=== PATIENT | male | born 1965 | race Caucasian/White ===

== ENCOUNTER 2020-01-27 06:01 | Outpatient (REF) | payer OTHER, SELFPAY ==
[2020-01-27 07:34] LABS: Cholesterol 191 mg/dL; HDL Cholesterol 38 mg/dL; LDL Cholesterol Calculated 110 mg/dl; Triglycerides 217 mg/dL
== END 2020-01-27 06:02 | disposition home or self-care (01) ==
LOC: HO.LAB 06:01
PROVIDERS: Visit Provider Internal Medicine
DX: E78.5 Hyperlipidemia, unspecified (principal)
CPT/HCPCS: 80061

== ENCOUNTER 2020-04-22 06:09 | Outpatient (REF) | payer OTHER, SELFPAY ==
[2020-04-22 08:13] LABS: Cholesterol 192 mg/dL; HDL Cholesterol 42 mg/dL; LDL Cholesterol Calculated 123 mg/dl; Triglycerides 135 mg/dL
== END 2020-04-22 06:10 | disposition home or self-care (01) ==
LOC: HO.LAB 06:09
PROVIDERS: PCP Internal Medicine; Visit Provider Internal Medicine
DX: E11.9 Type 2 diabetes mellitus without complications (principal)
CPT/HCPCS: 36415; 80061

== ENCOUNTER 2020-08-20 06:05 | Outpatient (REF) | payer OTHER, SELFPAY ==
[2020-08-20 07:29] LABS: Cholesterol 167 mg/dL; HDL Cholesterol 41 mg/dL; LDL Cholesterol Calculated 100 mg/dl; Triglycerides 132 mg/dL
== END 2020-08-20 06:06 | disposition home or self-care (01) ==
LOC: HO.LAB 06:05
PROVIDERS: PCP Internal Medicine; Visit Provider Internal Medicine
DX: E11.9 Type 2 diabetes mellitus without complications (principal)
CPT/HCPCS: 36415; 80061

== ENCOUNTER 2020-12-07 09:25 | Outpatient (REF) | payer OTHER, SELFPAY | END 2020-12-07 09:26 | disposition home or self-care (01) | LOC: HO.LAB 09:25 | PROVIDERS: Visit Provider Hospitalist | DX: J02.8 Acute pharyngitis due to other specified organisms (principal); B97.89 Other viral agents as the cause of diseases classified elsewhere; R51.9 Headache, unspecified; Z20.822 Contact with and (suspected) exposure to COVID-19 | CPT/HCPCS: U0003; U0005 ==

== ENCOUNTER 2021-02-11 08:03 | Outpatient (REF) | payer OTHER, SELFPAY ==
[2021-02-11 08:22] LABS: MANUAL DIFF FLAG NO
[2021-02-11 08:40] LABS: Basophils Percent Auto 0.3 % (0-2); Eosinophils Absolute Auto 0.1 X10*3/uL (0.0-0.4); Hematocrit 44.1 % (42.0-52.0); Hemoglobin 15.4 g/dl (14.0-18.0); Imm Gran Abs Auto 0.02 X10*3/uL (0.00-0.03); Imm Gran Pct Auto 0.3 % (0.0-0.4); Lymphocytes Absolute Auto 2.3 X10*3/uL (1.2-4.9); Lymphocytes Percent Auto 38.1 % (20-40); Mean Corpuscular HGB Conc 34.9 g/dl (31.0-36.0); Mean Corpuscular Hemoglobin 32.8 pg (27.0-33.0); Mean Platelet Volume 8.5 fL (9.4-12.4); Monocytes Absolute Auto 0.5 X10*3/uL (0.1-1.2); Neutrophils Percent Auto 51.3 % (45-73); Platelet Count 206 X10*3/uL (160-400); Red Blood Count 4.69 X10*6/uL (4.60-5.80); Red Cell Distribution Width 11.4 % (11.0-16.0); White Blood Count 5.9 X10*3/uL (4.8-10.8)
[2021-02-11 09:18] LABS: Alanine Aminotransferase 19 U/L (0-40); Albumin Level 4.2 g/dL (3.5-5.0); Alkaline Phosphatase 91 U/L (39-117); Anion Gap 13 (12-20); Aspartate Amino Transferase 18 U/L (5-37); Bilirubin Total 0.8 mg/dL (0.0-1.0); Blood Urea Nitrogen 19 mg/dL (9-16); Calcium 9.1 mg/dL (8.4-10.2); Carbon Dioxide 24 mmol/L (22-29); Chloride 105 mmol/L (96-108); Cholesterol 181 mg/dL; Estimated Glomerular Filt Rate > 60; Glucose Fasting 104 mg/dL (60-99); HDL Cholesterol 39 mg/dL; LDL Cholesterol Calculated 106 mg/dl; Potassium 4.1 mmol/L (3.3-5.1); Sodium 138 mmol/L (135-145); Total Protein 6.7 g/dL (6.5-8.0); Triglycerides 182 mg/dL
== END 2021-02-11 08:04 | disposition home or self-care (01) ==
LOC: HO.LAB 08:03
PROVIDERS: PCP Internal Medicine; Visit Provider Internal Medicine
DX: Z00.00 Encounter for general adult medical examination without abnormal findings (principal); E11.9 Type 2 diabetes mellitus without complications
CPT/HCPCS: 36415; 80053; 80061; 85025

== ENCOUNTER 2021-03-02 11:21 | Outpatient (REF) | payer OTHER, SELFPAY ==
[2021-03-02 15:06] LABS: Influenza A PCR NEGATIVE (Negative); Influenza B PCR NEGATIVE (Negative); Resp Syncy Virus RNA Qual PCR NEGATIVE (Negative); SARS COV2 PCR INHOUSE POSITIVE (Negative)
== END 2021-03-02 11:22 | disposition home or self-care (01) ==
LOC: HO.LAB 11:21
PROVIDERS: Visit Provider Family Medicine
DX: Z20.822 Contact with and (suspected) exposure to COVID-19 (principal); B34.9 Viral infection, unspecified
CPT/HCPCS: 0241U

== ENCOUNTER 2021-05-20 06:02 | Outpatient (REF) | payer OTHER, SELFPAY ==
[2021-05-20 08:02] LABS: Cholesterol 206 mg/dL; HDL Cholesterol 44 mg/dL; LDL Cholesterol Calculated 124 mg/dl; Triglycerides 193 mg/dL
== END 2021-05-20 06:03 | disposition home or self-care (01) ==
LOC: HO.LAB 06:02
PROVIDERS: PCP Internal Medicine; Visit Provider Internal Medicine
DX: Z00.00 Encounter for general adult medical examination without abnormal findings (principal)
CPT/HCPCS: 36415; 80061

== ENCOUNTER 2021-09-16 07:32 | Outpatient (REF) | payer OTHER, SELFPAY ==
[2021-09-16 08:23] LABS: Cholesterol 196 mg/dL; HDL Cholesterol 41 mg/dL; LDL Cholesterol Calculated 127 mg/dl; Triglycerides 141 mg/dL
== END 2021-09-16 07:33 | disposition home or self-care (01) ==
LOC: HO.LAB 07:32
PROVIDERS: PCP Internal Medicine; Visit Provider Internal Medicine
DX: Z00.00 Encounter for general adult medical examination without abnormal findings (principal)
CPT/HCPCS: 36415; 80061

== ENCOUNTER 2022-01-18 08:14 | Outpatient (REF) | payer OTHER, SELFPAY ==
[2022-01-18 08:26] LABS: MANUAL DIFF FLAG NO
[2022-01-18 08:39] LABS: Basophils Absolute Auto 0.1 X10*3/uL (0.0-0.2); Basophils Percent Auto 0.7 % (0-2); Eosinophils Absolute Auto 0.2 X10*3/uL (0.0-0.4); Hematocrit 46.1 % (42.0-52.0); Hemoglobin 15.8 g/dl (14.0-18.0); Imm Gran Abs Auto 0.06 X10*3/uL (0.00-0.03); Imm Gran Pct Auto 0.8 % (0.0-0.4); Lymphocytes Absolute Auto 2.6 X10*3/uL (1.2-4.9); Lymphocytes Percent Auto 34.3 % (20-40); Mean Corpuscular HGB Conc 34.3 g/dl (31.0-36.0); Mean Corpuscular Hemoglobin 32.6 pg (27.0-33.0); Mean Corpuscular Volume 95.1 fL (80.0-98.0); Mean Platelet Volume 8.4 fL (9.4-12.4); Monocytes Absolute Auto 0.7 X10*3/uL (0.1-1.2); Monocytes Percent Auto 8.5 % (2-11); Neutrophils Absolute Auto 4.1 x10*3/uL (2.0-8.3); Neutrophils Percent Auto 53.7 % (45-73); Platelet Count 243 X10*3/uL (160-400); Red Blood Count 4.85 X10*6/uL (4.60-5.80); Red Cell Distribution Width 11.2 % (11.0-16.0); White Blood Count 7.6 X10*3/uL (4.8-10.8)
[2022-01-18 10:00] LABS: Alanine Aminotransferase 24 U/L (0-40); Albumin Level 4.2 g/dL (3.5-5.0); Alkaline Phosphatase 96 U/L (39-117); Anion Gap 12 (12-20); Aspartate Amino Transferase 19 U/L (5-37); Bilirubin Total 0.5 mg/dL (0.0-1.0); Blood Urea Nitrogen 15 mg/dL (9-16); Carbon Dioxide 28 mmol/L (22-29); Chloride 103 mmol/L (96-108); Cholesterol 178 mg/dL; Estimated Glomerular Filt Rate > 60; Glucose Fasting 102 mg/dL (60-99); HDL Cholesterol 39 mg/dL; LDL Cholesterol Calculated 94 mg/dl; Potassium 4.4 mmol/L (3.3-5.1); Sodium 139 mmol/L (135-145); Thyroid Stimulating Hormone 0.71 uIU/mL (0.32-4.0); Total Protein 6.6 g/dL (6.5-8.0); Triglycerides 226 mg/dL
== END 2022-01-18 08:15 | disposition home or self-care (01) ==
LOC: HO.LAB 08:14
PROVIDERS: PCP Internal Medicine; Visit Provider Internal Medicine
DX: Z13.0 Encounter for screening for diseases of the blood and blood-forming organs and certain disorders involving the immune mechanism (principal); I10 Essential (primary) hypertension; E78.5 Hyperlipidemia, unspecified; E03.9 Hypothyroidism, unspecified
CPT/HCPCS: 36415; 80053; 80061; 84443; 85025

== ENCOUNTER 2022-05-20 08:03 | Outpatient (REF) | payer OTHER, SELFPAY ==
[2022-05-20 08:55] LABS: Cholesterol 188 mg/dL; HDL Cholesterol 41 mg/dL; LDL Cholesterol Calculated 111 mg/dl; Triglycerides 183 mg/dL
== END 2022-05-20 08:04 | disposition home or self-care (01) ==
LOC: HO.LAB 08:03
PROVIDERS: PCP Internal Medicine; Visit Provider Internal Medicine
DX: E78.5 Hyperlipidemia, unspecified (principal)
CPT/HCPCS: 36415; 80061

== ENCOUNTER 2022-08-21 06:07 | Outpatient (REF) | payer OTHER, SELFPAY ==
[2022-08-21 08:00] LABS: Cholesterol 162 mg/dL; HDL Cholesterol 41 mg/dL; LDL Cholesterol Calculated 80 mg/dl; Triglycerides 206 mg/dL
== END 2022-08-21 06:08 | disposition home or self-care (01) ==
LOC: HO.LAB 06:07
PROVIDERS: PCP Internal Medicine; Visit Provider Internal Medicine
DX: E78.5 Hyperlipidemia, unspecified (principal)
CPT/HCPCS: 36415; 80061

== ENCOUNTER 2022-12-22 06:05 | Outpatient (REF) | payer OTHER, SELFPAY ==
[2022-12-22 07:49] LABS: Cholesterol 184 mg/dL (<200); HDL Cholesterol 46 mg/dL (>40); LDL Cholesterol Calculated 109 mg/dL (<100); Triglycerides 146 mg/dL (<150)
== END 2022-12-22 06:06 | disposition home or self-care (01) ==
LOC: HO.LAB 06:05
PROVIDERS: PCP Internal Medicine; Visit Provider Internal Medicine
DX: E78.5 Hyperlipidemia, unspecified (principal)
CPT/HCPCS: 36415; 80061

== ENCOUNTER 2022-12-25 14:07 | Outpatient (AMB) | payer OTHER, SELFPAY ==
[2022-12-25 14:10] VITALS: BP 136/78; PULSE 95; O2SAT 98; BMI 33.9
--- NOTE | 2022-12-25 14:10 | MHC.PC.OV ---
Vital Signs 12/25/22 14:10 Height 5 ft 11 in Weight 243 lb BMI 33.9 BP 136/78 Blood Pressure Location Lt brachial Position Sitting Pulse 95 Pulse Source Pulse Oximeter Pulse Oximetry (%) 98 Oxygen Delivery Method Room Air Intake Visit Reasons: 4mth f/u Allergies amoxicillin [AMOXICILLIN] Allergy (Intermediate, Verified 12/25/22 14:10) HIVES/DIARRHEA Medication List - Last Reconciled 12/26/22 by Slade Chaves MD lovastatin 40 mg PO DAILY Tobacco use date assessed: 08/24/22 Dental Screening Dental Screen Date: 12/25/22 Did you have a dental visit in the last 12 months?: Yes Did you have a dental problem in the last 6 months where you did not have access to dental care?: No Was dental information given to patient?: Patient has dentist HPI 4mth f/u HPI Details hyperlip on rx; compliant COUNTS INCLUDE 234 BEDS AT THE [facility] Medical History Obesity Hyperlipidemia Surgical History No pertinent past surgical history Family History Father Lung cancer Mother CAD (coronary artery disease) Liver cancer Myocardial infarction Brother No problems noted. Social History Housing: House Alcohol intake: current Alcohol intake frequency: a few times a month Patient Tobacco Use Status: Never used Tobacco e-Cigarette/Vaping Use: Never Used Second Hand Smoke Exposure: No service: No Current occupational status: employed Cognitive needs: No Hearing needs: No Vision needs: Yes Questionnaire PHQ-9 Over the last 2 weeks, how often have you been bothered by any of the following problems? 1. Little interest or pleasure in doing things: not at all 2. Feeling down, depressed, or hopeless: not at all 3. Trouble falling or staying asleep, or sleeping too much: not at all 4. Feeling tired or having little energy: not at all 5. Poor appetite or overeating: not at all 6. Feeling bad about yourself - or that you are a failure or have let yourself or your family down: not at all 7. Trouble concentrating on things, such as reading the newspaper or watching television: not at all 8. Moving or speaking so slowly that other people could have noticed. Or the opposite - being so fidgety or restless that you have been moving around a lot more than usual: not at all 9. Thoughts that you would be better off or of hurting yourself in some way: not at all Total score: 0 Depression Screening Interpretation: Negative Depression Screening Done: Yes 30428 - PHQ-9 Billing: Yes Source: Developed by Drs. Elvin Perdomo, Maribel Beverly, Roberth Galvin and colleagues, with an educational parisa from [employer]. Thrive Questionnaire Date Thrive assessed: 08/24/22 AUDIT C Alcohol Use Questionnaire (AUDIT-C) Score Reviewed/Action Taken: Yes RONAL-7 AMB Questionnaire RONAL-7 Date RONAL - 7 assessed: 08/24/22 Source: Developed by Drs. Elvin Perdomo, Maribel Beverly, Roberth Galvin and colleagues, with an educational parisa from [employer]. Review of Systems Const Denies chills, Denies headache(s) and Denies weight loss ENT Denies headache(s) Card Denies chest pain, Denies syncope, Denies irregular heart rhythm and Denies dyspnea Resp Denies chest congestion, Denies cough and Denies dyspnea GI Denies abdominal pain, Denies change in stool character, Denies nausea and Denies vomiting Musc Denies deformity and Denies joint swelling Neuro Denies syncope and Denies headache(s) Physical exam (Primary Care) Vital Signs: Last Vital Signs Pulse 95 12/25/22 14:10 BP 136/78 12/25/22 14:10 Pulse Ox 98 12/25/22 14:10 Oxygen Delivery Method Room Air 12/25/22 14:10 BMI result Body Mass Index 33.9 Tobacco/Smoking Status: Tobacco use Status Tobacco use date assessed 08/24/22 12/25/22 14:11 Patient Tobacco Use Status Never used Tobacco 12/25/22 14:11 e-Cigarette/Vaping Use Never Used 12/25/22 14:11 PHQ-9: PHQ-9 Score PHQ-9: Total score 0 12/25/22 14:11 Depression Screening Interpretation: Negative Thrive Assessment: Date of Thrive Assessment Date Thrive assessed 08/24/22 12/25/22 14:11 Const General: cooperative, comfortable, no acute distress and alert Neck Neck: Yes no lymphadenopathy Thyroid: Thyroid normal Resp Effort & Inspection: normal respiratory effort Auscultation: clear to auscultation bilaterally Percussion: percussion normal Cardio Jugular venous distension: no JVD Palpation: normal PMI Rate: regular rate Rhythm: regular rhythm Heart sounds: S1 normal heart sound present and S2 normal heart sound present GI Inspection: Yes normal to inspection Palpation (GI): No hepatosplenomegaly present Skin General skin exam: no rashes or lesions noted Extrem General: Yes no clubbing, cyanosis or edema Assessment and Plan Assessment & Plan (1) Hyperlipidemia: Code(s): E78.5 - Hyperlipidemia, unspecified Plan: stable; same rx Orders: Orders Lipid Panel Today E78.5 - Hyperlipidemia, unspecified Coding Level of Care Code Est Pt Level 3 (91076) Diagnoses Hyperlipidemia E78.5
== END 2022-12-25 14:27 | disposition home or self-care (01) ==
PROVIDERS: PCP Internal Medicine; Visit Provider Internal Medicine
DX: E78.5 Hyperlipidemia, unspecified (principal)
CPT/HCPCS: 99213

== ENCOUNTER 2023-02-09 06:07 | Outpatient (REF) | payer OTHER, SELFPAY ==
[2023-02-09 07:29] LABS: Cholesterol 195 mg/dL (<200); HDL Cholesterol 41 mg/dL (>40); LDL Cholesterol Calculated 117 mg/dL (<100); Triglycerides 186 mg/dL (<150)
== END 2023-02-09 06:08 | disposition home or self-care (01) ==
LOC: HO.LAB 06:07
PROVIDERS: PCP Internal Medicine; Visit Provider Internal Medicine
DX: E78.5 Hyperlipidemia, unspecified (principal)
CPT/HCPCS: 36415; 80061

== ENCOUNTER 2023-02-12 08:37 | Outpatient (AMB) | payer OTHER, SELFPAY ==
[2023-02-12 08:38] VITALS: BP 150/80; PULSE 100; O2SAT 98; BMI 33.9
--- NOTE | 2023-02-12 08:38 | A.OFFPC_ITS ---
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 Accompanied by: Self / Same As Patient Allergies amoxicillin [AMOXICILLIN] Allergy (Intermediate, Verified 02/12/23 08:38) HIVES/DIARRHEA Medication List - Last Reconciled 02/12/23 by Slade Chaves MD lovastatin 40 mg PO DAILY Tobacco use date assessed: 08/24/22 Dental Screening Dental Screen Date: 02/12/23 Did you have a dental visit in the last 12 months?: Yes Did you have a dental problem in the last 6 months where you did not have access to dental care?: No Was dental information given to patient?: Patient has dentist HPI Annual Exam HPI Details hyper[facility] Medical History Obesity Hyperlipidemia Surgical History No pertinent past surgical history Family History Father Lung cancer Mother CAD (coronary artery disease) Liver cancer Myocardial infarction Brother No problems noted. Social History Housing: House Alcohol intake: current Alcohol intake frequency: a few times a month Patient Tobacco Use Status: Never used Tobacco e-Cigarette/Vaping Use: Never Used Second Hand Smoke Exposure: No service: No Current occupational status: employed Cognitive needs: No Hearing needs: No Vision needs: Yes Questionnaire Thrive Questionnaire Date Thrive assessed: 08/24/22 RNOAL-7 AMB Questionnaire RONAL-7 Date RONAL - 7 assessed: 08/24/22 Source: Developed by Drs. Elvin Perdomo, Maribel Beverly, Roberth Galvin and colleagues, with an educational parisa from [employer]. Review of Systems Const Denies chills, Denies fatigue, Denies headache(s) and Denies weight loss Eyes Denies change in vision, Denies diplopia and Denies eye pain ENT Denies vertigo, Denies dizziness, Denies headache(s) and Denies nasal discharge Card Denies chest pain, Denies rapid heart rate and Denies dyspnea on exertion Resp Denies chest congestion, Denies cough, Denies pain with cough and Denies dyspnea on exertion GI Denies abdominal pain, Denies hematochezia and Denies change in bowel habits Musc Denies myalgias, Denies arthralgias and Denies joint swelling Skin/Breast Denies lesions and Denies unusual bruising Neuro Denies vertigo, Denies dizziness, Denies headache(s) and Denies focal weakness Endo Denies fatigue Physical exam (Primary Care) Vital Signs: Last Vital Signs Pulse 100 02/12/23 08:38 BP 150/80 H 02/12/23 08:38 Pulse Ox 98 02/12/23 08:38 Oxygen Delivery Method Room Air 02/12/23 08:38 BMI result Body Mass Index 33.9 Tobacco/Smoking Status: Tobacco use Status Tobacco use date assessed 08/24/22 02/12/23 08:38 Patient Tobacco Use Status Never used Tobacco 02/12/23 08:38 e-Cigarette/Vaping Use Never Used 02/12/23 08:38 Thrive Assessment: Date of Thrive Assessment Date Thrive assessed 08/24/22 02/12/23 08:38 Const General: cooperative, healthy appearing and no acute distress Orientation/consciousness: oriented to person, oriented to place and oriented to time [facility] Head: Yes normal to inspection, Yes normocephalic and Yes atraumatic Mouth: Normal oral and palatal mucosa present and tongue normal Throat: Yes posterior oropharynx normal and Yes uvula midline Eyes General: appearance normal, both eyes and all related structures Neck Neck: Yes normal visual inspection, Yes full ROM and Yes no lymphadenopathy Thyroid: Thyroid normal Carotids: normal carotid upstroke Chest Chest palpation & inspection: normal inspection of the chest Resp Effort & Inspection: normal respiratory effort and able to speak in complete sentences Auscultation: clear to auscultation bilaterally Cardio Jugular venous distension: no JVD Palpation: normal PMI Rate: regular rate Rhythm: regular rhythm Heart sounds: S1 normal heart sound present and S2 normal heart sound present GI Inspection: Yes normal to inspection Palpation (GI): Soft to palpation and No hepatosplenomegaly present Auscultation: normal bowel sounds General: Yes no CVA tenderness Back/Spine/Pelvis Back: no CVA tenderness Skin General skin exam: no rashes or lesions noted Neuro General: oriented to person, oriented to place and oriented to time Extrem General: Yes normal to inspection and Yes full ROM Assessment and Plan Assessment & Plan (1) Physical exam: Code(s): Z00.00 - Encounter for general adult medical examination without abnormal findings Plan: stable (2) Hyperlipidemia: Code(s): E78.5 - Hyperlipidemia, unspecified Plan: stable; same rx Orders: Orders Lipid Panel Today E78.5 - Hyperlipidemia, unspecified Complete Blood Count Auto Diff Today D64.9 - Anemia, unspecified Comprehensive [place]. Panel Fast Today N28.9 - Disorder of kidney and ureter, unspecified Coding Level of Care Code Est Pt Prev Care 40-64y(24368) Diagnoses Physical exam Z00.00 Hyperlipidemia E78.5
== END 2023-02-12 09:23 | disposition home or self-care (01) ==
PROVIDERS: Visit Provider Internal Medicine
DX: Z00.00 Encounter for general adult medical examination without abnormal findings (principal); E78.5 Hyperlipidemia, unspecified
CPT/HCPCS: 99396

== ENCOUNTER 2023-05-10 08:43 | Outpatient (REF) | payer OTHER, SELFPAY ==
[2023-05-10 09:11] LABS: MANUAL DIFF FLAG NO
[2023-05-10 09:31] LABS: Basophils Percent Auto 0.4 % (0-2); Eosinophils Absolute Auto 0.1 X10*3/uL (0.0-0.4); Eosinophils Percent Auto 1.8 % (0-4); Hematocrit 45.4 % (42.0-52.0); Hemoglobin 16.1 g/dl (14.0-18.0); Imm Gran Abs Auto 0.04 X10*3/uL (0.00-0.03); Imm Gran Pct Auto 0.6 % (0.0-0.4); Lymphocytes Absolute Auto 2.6 X10*3/uL (1.2-4.9); Lymphocytes Percent Auto 37.5 % (20-40); Mean Corpuscular HGB Conc 35.5 g/dl (31.0-36.0); Mean Corpuscular Hemoglobin 32.9 pg (27.0-33.0); Mean Corpuscular Volume 92.7 fL (80.0-98.0); Mean Platelet Volume 8.3 fL (9.4-12.4); Monocytes Absolute Auto 0.6 X10*3/uL (0.1-1.2); Monocytes Percent Auto 8.8 % (2-11); Neutrophils Absolute Auto 3.5 x10*3/uL (2.0-8.3); Neutrophils Percent Auto 50.9 % (45-73); Platelet Count 201 X10*3/uL (160-400); Red Cell Distribution Width 11.5 % (11.0-16.0); White Blood Count 6.9 X10*3/uL (4.8-10.8)
[2023-05-10 10:06] LABS: Alanine Aminotransferase 26 U/L (0-40); Albumin Level 4.2 g/dL (3.5-5.0); Alkaline Phosphatase 99 U/L (39-117); Anion Gap 11 (12-20); Aspartate Amino Transferase 21 U/L (5-37); Bilirubin Total 0.7 mg/dL (0.0-1.0); Blood Urea Nitrogen 18 mg/dL (9-16); Calcium 9.1 mg/dL (8.4-10.2); Carbon Dioxide 25 mmol/L (22-29); Chloride 107 mmol/L (96-108); Cholesterol 177 mg/dL (<200); Estimated Glomerular Filt Rate > 60; Glucose Fasting 103 mg/dL (60-99); HDL Cholesterol 45 mg/dL (>40); LDL Cholesterol Calculated 108 mg/dL (<100); Potassium 4.3 mmol/L (3.3-5.1); Sodium 139 mmol/L (135-145); Total Protein 6.9 g/dL (6.5-8.0); Triglycerides 123 mg/dL (<150)
== END 2023-05-10 08:44 | disposition home or self-care (01) ==
LOC: HO.LAB 08:43
PROVIDERS: PCP Internal Medicine; Visit Provider Internal Medicine
DX: N28.9 Disorder of kidney and ureter, unspecified (principal); D64.9 Anemia, unspecified; E78.5 Hyperlipidemia, unspecified
CPT/HCPCS: 36415; 80053; 80061; 85025

== ENCOUNTER 2023-05-15 10:13 | Outpatient (AMB) | payer OTHER, SELFPAY ==
[2023-05-15 10:17] VITALS: BP 140/76; PULSE 75; O2SAT 98; BMI 34.3
--- NOTE | 2023-05-15 10:17 | MHC.PC.OV ---
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 Accompanied by: Self / Same As Patient Allergies amoxicillin [AMOXICILLIN] Allergy (Intermediate, Verified 05/15/23 10:18) HIVES/DIARRHEA Medication List - Last Reconciled 05/15/23 by Slade Chaves MD lovastatin 40 mg PO DAILY Tobacco use date assessed: 05/15/23 Dental Screening Dental Screen Date: 05/15/23 Did you have a dental visit in the last 12 months?: Yes Did you have a dental problem in the last 6 months where you did not have access to dental care?: No Was dental information given to patient?: Patient has dentist HPI 3 month f/u HPI Details hyperlipidemia on rx; doing well; compliant [facility] Medical History Obesity Hyperlipidemia Surgical History No pertinent past surgical history Family History Father Lung cancer Mother CAD (coronary artery disease) Liver cancer Myocardial infarction Brother No problems noted. Social History Housing: House Alcohol intake: current Alcohol intake frequency: a few times a month Patient Tobacco Use Status: Never used Tobacco e-Cigarette/Vaping Use: Never Used Second Hand Smoke Exposure: No service: No Current occupational status: employed Cognitive needs: No Hearing needs: No Vision needs: Yes Questionnaire PHQ-9 Over the last 2 weeks, how often have you been bothered by any of the following problems? 1. Little interest or pleasure in doing things: not at all 2. Feeling down, depressed, or hopeless: not at all 3. Trouble falling or staying asleep, or sleeping too much: not at all 4. Feeling tired or having little energy: not at all 5. Poor appetite or overeating: not at all 6. Feeling bad about yourself - or that you are a failure or have let yourself or your family down: not at all 7. Trouble concentrating on things, such as reading the newspaper or watching television: not at all 8. Moving or speaking so slowly that other people could have noticed. Or the opposite - being so fidgety or restless that you have been moving around a lot more than usual: not at all 9. Thoughts that you would be better off or of hurting yourself in some way: not at all Total score: 0 Depression Screening Interpretation: Negative Depression Screening Done: Yes 18814 - PHQ-9 Billing: Yes Source: Developed by Drs. Elvin Perdomo, Maribel Beverly, Roberth Galvin and colleagues, with an educational parisa from [employer]. Thrive Questionnaire Date Thrive assessed: 05/15/23 I am a: Patient What is your living situation today?: I have a steady place to live Within the past 12 months, did the food you bought not last and you didn't have the money to get more?: Never true Within the past 12 months, did you worry whether your food would run out before you got money to buy more?: Never true Do you have trouble paying for medicines?: No Do you have trouble getting transportation to medical appointments?: No Do you have trouble paying your heating and electricity bill?: No Do you have trouble taking care of your child, family member or friend?: No Do you have trouble with day-to-day activities such as bathing, preparing meals, shopping, managing finances, etc.?: No Are you currently unemployed and looking for a job?: No Are you interested in more education?: No Please select the resources that you would like help with: None THRIVE Score: 0 AUDIT C Alcohol Use Questionnaire (AUDIT-C) 1. How often do you have a drink containing alcohol?: Never Total Score: 0 Score Reviewed/Action Taken: Yes RONAL-7 AMB Questionnaire RONAL-7 Date RONAL - 7 assessed: 05/15/23 Feeling nervous, anxious, or on edge: 0 = Not at all Not being able to stop or control worryin = Not at all Worrying too much about different things: 0 = Not at all Trouble relaxin = Not at all Being so restless that it is hard to sit still: 0 = Not at all Becoming easily annoyed or irritable: 0 = Not at all Feeling afraid as if something awful might happen: 0 = Not at all Total RONAL-7 score (0-4 normal; 5-9 mild; 10-14 moderate; 15-21 severe): 0 Source: Developed by Drs. Elvin Perdomo, Maribel Beverly, Roberth Galvin and colleagues, with an educational parisa from [employer]. RONAL-7 Assessment Billing RONAL-7 Assessment Tool: RONAL-7 Assessment 08241 Review of Systems Const Denies chills, Denies headache(s) and Denies weight loss ENT Denies headache(s) Card Denies chest pain, Denies syncope, Denies irregular heart rhythm and Denies dyspnea Resp Denies chest congestion, Denies cough and Denies dyspnea GI Denies abdominal pain, Denies change in stool character, Denies nausea and Denies vomiting Musc Denies deformity and Denies joint swelling Neuro Denies syncope and Denies headache(s) Physical exam (Primary Care) Vital Signs: Last Vital Signs Pulse 75 05/15/23 10:17 BP 140/76 H 05/15/23 10:17 Pulse Ox 98 05/15/23 10:17 Oxygen Delivery Method Room Air 05/15/23 10:17 BMI result Body Mass Index 34.3 Tobacco/Smoking Status: Tobacco use Status Tobacco use date assessed 05/15/23 05/15/23 10:22 Patient Tobacco Use Status Never used Tobacco 05/15/23 10:22 e-Cigarette/Vaping Use Never Used 05/15/23 10:22 PHQ-9: PHQ-9 Score PHQ-9: Total score 0 05/15/23 10:22 Depression Screening Interpretation: Negative Thrive Assessment: Date of Thrive Assessment Date Thrive assessed 05/15/23 05/15/23 10:22 Const General: cooperative, comfortable, no acute distress and alert Neck Neck: Yes no lymphadenopathy Thyroid: Thyroid normal Resp Effort & Inspection: normal respiratory effort Auscultation: clear to auscultation bilaterally Percussion: percussion normal Cardio Jugular venous distension: no JVD Palpation: normal PMI Rate: regular rate Rhythm: regular rhythm Heart sounds: S1 normal heart sound present and S2 normal heart sound present GI Inspection: Yes normal to inspection Palpation (GI): No hepatosplenomegaly present Skin General skin exam: no rashes or lesions noted Extrem General: Yes no clubbing, cyanosis or edema Assessment and Plan Assessment & Plan (1) Hyperlipidemia: Code(s): E78.5 - Hyperlipidemia, unspecified Plan: stable; same rx Orders: Orders Lipid Panel Today E78.5 - Hyperlipidemia, unspecified Coding Level of Care Code Est Pt Level 3 (53412) Diagnoses Hyperlipidemia E78.5 Additional Codes RONAL-7 Assessment Billing - RONAL-7 Assessment Tool: RONAL-7 Assessment [id number] ([id number])
== END 2023-05-15 10:38 | disposition home or self-care (01) ==
PROVIDERS: PCP Internal Medicine; Visit Provider Internal Medicine
DX: E78.5 Hyperlipidemia, unspecified (principal)
CPT/HCPCS: 99213

== ENCOUNTER 2023-08-29 06:05 | Outpatient (REF) | payer OTHER, SELFPAY ==
[2023-08-29 08:00] LABS: Cholesterol 178 mg/dL (<200); HDL Cholesterol 43 mg/dL (>40); LDL Cholesterol Calculated 100 mg/dL (<100); Triglycerides 176 mg/dL (<150)
== END 2023-08-29 06:06 | disposition home or self-care (01) ==
LOC: HO.LAB 06:05
PROVIDERS: PCP Internal Medicine; Visit Provider Internal Medicine
DX: E78.5 Hyperlipidemia, unspecified (principal)
CPT/HCPCS: 36415; 80061

== ENCOUNTER 2023-09-04 10:44 | Outpatient (AMB) | payer OTHER, SELFPAY ==
--- NOTE | 2023-09-04 10:44 | MHC.PC.OV ---
Vital Signs 09/04/23 10:45 Height 5 ft 11 in Weight 245 lb BMI 34.2 BP 160/90 H Blood Pressure Location Lt brachial Position Sitting Pulse 70 Pulse Source Pulse Oximeter Pulse Oximetry (%) 98 Oxygen Delivery Method Room Air Intake Visit Reasons: 4mth f/u Rehabilitation Attendant: Not Required per policy Accompanied by: Self / Same As Patient Allergies amoxicillin [AMOXICILLIN] Allergy (Intermediate, Verified 09/04/23 10:45) HIVES/DIARRHEA Medication List - Last Reconciled 09/04/23 by Slade Chaves MD lovastatin 40 mg PO DAILY Tobacco use date assessed: 05/15/23 Dental Screening Dental Screen Date: 05/15/23 HPI 4mth f/u HPI Details hyperlipidemia on rx; compliant with rx PFSH Medical History Obesity Hyperlipidemia Surgical History No pertinent past surgical history Family History Father Lung cancer Mother CAD (coronary artery disease) Liver cancer Myocardial infarction Brother No problems noted. Social History Housing: House Alcohol intake: current Alcohol intake frequency: a few times a month Patient Tobacco Use Status: Never used Tobacco e-Cigarette/Vaping Use: Never Used Second Hand Smoke Exposure: No service: No Current occupational status: employed Cognitive needs: No Hearing needs: No Vision needs: Yes Questionnaire Thrive Questionnaire Date Thrive assessed: 05/15/23 RONAL-7 AMB Questionnaire RONAL-7 Date RONAL - 7 assessed: 05/15/23 Source: Developed by Drs. Elvin Perdomo, Maribel Beverly, Roberth Galvin and colleagues, with an educational parisa from [employer]. Review of Systems Const Denies chills, Denies headache(s) and Denies weight loss ENT Denies headache(s) Card Denies chest pain, Denies syncope, Denies irregular heart rhythm and Denies dyspnea Resp Denies chest congestion, Denies cough and Denies dyspnea GI Denies abdominal pain, Denies change in stool character, Denies nausea and Denies vomiting Musc Denies deformity and Denies joint swelling Neuro Denies syncope and Denies headache(s) Physical exam (Primary Care) Vital Signs: Last Vital Signs Pulse 70 09/04/23 10:45 BP 160/90 H 09/04/23 10:45 Pulse Ox 98 09/04/23 10:45 Oxygen Delivery Method Room Air 09/04/23 10:45 BMI result Body Mass Index 34.2 Tobacco/Smoking Status: Tobacco use Status Tobacco use date assessed 05/15/23 09/04/23 10:47 Patient Tobacco Use Status Never used Tobacco 09/04/23 10:47 e-Cigarette/Vaping Use Never Used 09/04/23 10:47 Thrive Assessment: Date of Thrive Assessment Date Thrive assessed 05/15/23 09/04/23 10:47 Const General: cooperative, comfortable, no acute distress and alert Neck Neck: Yes no lymphadenopathy Thyroid: Thyroid normal Resp Effort & Inspection: normal respiratory effort Auscultation: clear to auscultation bilaterally Percussion: percussion normal Cardio Jugular venous distension: no JVD Palpation: normal PMI Rate: regular rate Rhythm: regular rhythm Heart sounds: S1 normal heart sound present and S2 normal heart sound present GI Inspection: Yes normal to inspection Palpation (GI): No hepatosplenomegaly present Skin General skin exam: no rashes or lesions noted Extrem General: Yes no clubbing, cyanosis or edema Assessment and Plan Assessment & Plan (1) Hyperlipidemia: Code(s): E78.5 - Hyperlipidemia, unspecified Plan: stable; same rx Orders: Orders Lipid Panel Today Z13.220 - Encounter for screening for lipoid disorders Coding Level of Care Code Est Pt Level 3 (70273) Diagnoses Hyperlipidemia E78.5
[2023-09-04 10:45] VITALS: BP 160/90; PULSE 70; O2SAT 98; BMI 34.2
== END 2023-09-04 10:55 | disposition home or self-care (01) ==
PROVIDERS: PCP Internal Medicine; Visit Provider Internal Medicine
DX: E78.5 Hyperlipidemia, unspecified (principal)
CPT/HCPCS: 99213

== ENCOUNTER 2024-01-30 10:42 | Outpatient (AMB) | payer OTHER, SELFPAY ==
--- NOTE | 2024-01-30 10:51 | A.OFFPC_ITS ---
Vital Signs 01/30/24 10:52 Height 5 ft 11 in Weight 246 lb BMI 34.3 BP 160/102 H Blood Pressure Location Lt brachial Position Sitting Pulse 95 Pulse Source Pulse Oximeter Pulse Oximetry (%) 97 Oxygen Delivery Method Room Air Intake Visit Reasons: Sour Throat Intake Note: Patient here c/o sore throat, aches, cough, negative covid testing, symptoms started Sunday Manager Investigations Required: No Allergies amoxicillin [AMOXICILLIN] Allergy (Intermediate, Verified 09/04/23 10:45) HIVES/DIARRHEA Tobacco use date assessed: 05/15/23 Dental Screening Dental Screen Date: 05/15/23 HPI Sour Throat HPI Details one week of a sore throat PFSH Medical History Obesity Hyperlipidemia Surgical History No pertinent past surgical history Family History Father Lung cancer Mother CAD (coronary artery disease) Liver cancer Myocardial infarction Brother No problems noted. Social History Housing: House Alcohol intake: current Alcohol intake frequency: a few times a month Patient Tobacco Use Status: Never used Tobacco e-Cigarette/Vaping Use: Never Used Second Hand Smoke Exposure: No service: No Current occupational status: employed Cognitive needs: No Hearing needs: No Vision needs: Yes Questionnaire Thrive Questionnaire Date Thrive assessed: 05/15/23 AUDIT C Alcohol Use Questionnaire (AUDIT-C) 2. How many drinks containing alcohol do you have on a typical day when you are drinking?: 1 or 2 3. How often do you have six or more drinks on one occasion?: Never Total Score: 0 RONAL-7 AMB Questionnaire RONAL-7 Date RONAL - 7 assessed: 05/15/23 Source: Developed by Drs. Elvin Perdomo, Maribel Beverly, Roberth Galvin and colleagues, with an educational parisa from [employer]. Review of Systems Const Denies chills, Denies headache(s) and Denies weight loss ENT Denies headache(s) Card Denies chest pain, Denies syncope, Denies irregular heart rhythm and Denies dyspnea Resp Denies chest congestion, Denies cough and Denies dyspnea GI Denies abdominal pain, Denies change in stool character, Denies nausea and Denies vomiting Musc Denies deformity and Denies joint swelling Neuro Denies syncope and Denies headache(s) Physical exam (Primary Care) Vital Signs: Last Vital Signs Pulse 95 01/30/24 10:52 BP 160/102 H 01/30/24 10:52 Pulse Ox 97 01/30/24 10:52 Oxygen Delivery Method Room Air 01/30/24 10:52 BMI result Body Mass Index 34.3 Tobacco/Smoking Status: Tobacco use Status Tobacco use date assessed 05/15/23 01/30/24 10:56 Patient Tobacco Use Status Never used Tobacco 01/30/24 10:56 e-Cigarette/Vaping Use Never Used 01/30/24 10:56 Thrive Assessment: Date of Thrive Assessment Date Thrive assessed 05/15/23 01/30/24 10:56 Const General: cooperative, comfortable, no acute distress and alert HENMT Other: pharynx erythematous w/o exudates Neck Neck: Yes no lymphadenopathy Thyroid: Thyroid normal Resp Effort & Inspection: normal respiratory effort Auscultation: clear to auscultation bilaterally Percussion: percussion normal Cardio Jugular venous distension: no JVD Palpation: normal PMI Rate: regular rate Rhythm: regular rhythm Heart sounds: S1 normal heart sound present and S2 normal heart sound present GI Inspection: Yes normal to inspection Palpation (GI): No hepatosplenomegaly present Skin General skin exam: no rashes or lesions noted Extrem General: Yes no clubbing, cyanosis or edema Coding Level of Care Code Est Pt Level 3 (84125) Diagnoses Pharyngitis J02.9 Assessment & Plan Assessment & Plan (1) Pharyngitis: Code(s): J02.9 - Acute pharyngitis, unspecified Plan: rx sent Medications: New azithromycin take 500 mg today (day 1), then 250 mg for 4 days (days 2-5) PO 6 tabs 0RF
[2024-01-30 10:52] VITALS: BP 160/102; PULSE 95; O2SAT 97; BMI 34.3
== END 2024-01-30 11:02 | disposition home or self-care (01) ==
PROVIDERS: PCP Internal Medicine; Visit Provider Internal Medicine
DX: J02.9 Acute pharyngitis, unspecified (principal)

== ENCOUNTER 2024-02-09 08:47 | Outpatient (REF) | payer OTHER, SELFPAY ==
[2024-02-09 10:11] LABS: Cholesterol 190 mg/dL (<200); HDL Cholesterol 45 mg/dL (>40); LDL Cholesterol Calculated 121 mg/dL (<100); Triglycerides 123 mg/dL (<150)
== END 2024-02-09 08:48 | disposition home or self-care (01) ==
LOC: HO.LAB 08:47
PROVIDERS: PCP Internal Medicine; Visit Provider Internal Medicine
DX: Z13.220 Encounter for screening for lipoid disorders (principal)
CPT/HCPCS: 36415; 80061

== ENCOUNTER 2024-02-15 10:39 | Outpatient (AMB) | payer OTHER, SELFPAY ==
[2024-02-15 10:47] VITALS: BP 144/90; PULSE 96; O2SAT 95; BMI 34.3
--- NOTE | 2024-02-15 10:47 | MHC.PC.OV ---
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 Movement Required: No Accompanied by: Self / Same As Patient Allergies amoxicillin [AMOXICILLIN] Allergy (Intermediate, Verified 02/15/24 10:52) HIVES/DIARRHEA Medication List - Last Reconciled 02/15/24 by Slade Chaves MD lovastatin 40 mg PO DAILY Tobacco use date assessed: 02/15/24 Dental Screening Dental Screen Date: 02/15/24 Did you have a dental visit in the last 12 months?: Yes Did you have a dental problem in the last 6 months where you did not have access to dental care?: No Was dental information given to patient?: Patient has dentist HPI physical HPI Details hyperlipidemia on rx; doing well and compliant [facility] Medical History Obesity Hyperlipidemia Surgical History No pertinent past surgical history Family History Father Lung cancer Mother CAD (coronary artery disease) Liver cancer Myocardial infarction Brother No problems noted. Social History Housing: House Alcohol intake: current Alcohol intake frequency: a few times a month Patient Tobacco Use Status: Never used Tobacco e-Cigarette/Vaping Use: Never Used Second Hand Smoke Exposure: No service: No Current occupational status: employed Cognitive needs: No Hearing needs: No Vision needs: Yes Questionnaire PHQ-9 Over the last 2 weeks, how often have you been bothered by any of the following problems? 1. Little interest or pleasure in doing things: not at all 2. Feeling down, depressed, or hopeless: not at all 3. Trouble falling or staying asleep, or sleeping too much: not at all 4. Feeling tired or having little energy: not at all 5. Poor appetite or overeating: not at all 6. Feeling bad about yourself - or that you are a failure or have let yourself or your family down: not at all 7. Trouble concentrating on things, such as reading the newspaper or watching television: not at all 8. Moving or speaking so slowly that other people could have noticed. Or the opposite - being so fidgety or restless that you have been moving around a lot more than usual: not at all 9. Thoughts that you would be better off or of hurting yourself in some way: not at all Total score: 0 Depression Screening Interpretation: Negative Depression Screening Done: Yes 77963 - PHQ-9 Billing: Yes Source: Developed by Drs. Elvin Perdomo, Maribel Beverly, Roberth Galvin and colleagues, with an educational parisa from [employer]. Thrive Questionnaire Date Thrive assessed: 02/15/24 I am a: Patient What is your living situation today?: I have a steady place to live Within the past 12 months, did the food you bought not last and you didn't have the money to get more?: I choose not to answer this question Within the past 12 months, did you worry whether your food would run out before you got money to buy more?: I choose not to answer this question Do you have trouble paying for medicines?: No Do you have trouble getting transportation to medical appointments?: No Do you have trouble paying your heating and electricity bill?: No Do you have trouble taking care of your child, family member or friend?: I choose not to answer this question Do you have trouble with day-to-day activities such as bathing, preparing meals, shopping, managing finances, etc.?: No Are you currently unemployed and looking for a job?: No Are you interested in more education?: I choose not to answer this question Please select the resources that you would like help with: None Currently or been in a relationship where the following occur: I choose not to answer THRIVE Score: 0 AUDIT C Alcohol Use Questionnaire (AUDIT-C) 1. How often do you have a drink containing alcohol?: 2-3 times a week 2. How many drinks containing alcohol do you have on a typical day when you are drinking?: 1 or 2 3. How often do you have six or more drinks on one occasion?: Never Total Score: 3 RONAL-7 AMB Questionnaire RONAL-7 Date RONAL - 7 assessed: 02/15/24 Feeling nervous, anxious, or on edge: 0 = Not at all Not being able to stop or control worryin = Not at all Worrying too much about different things: 0 = Not at all Trouble relaxin = Not at all Being so restless that it is hard to sit still: 0 = Not at all Becoming easily annoyed or irritable: 0 = Not at all Feeling afraid as if something awful might happen: 0 = Not at all Total RONAL-7 score (0-4 normal; 5-9 mild; 10-14 moderate; 15-21 severe): 0 Source: Developed by Drs. Elvin Perdomo, Maribel Beverly, Roberth Galvin and colleagues, with an educational parisa from [employer]. RONAL-7 Assessment Billing RONAL-7 Assessment Tool: RONAL-7 Assessment 49722 Review of Systems Const Denies chills, Denies fatigue, Denies headache(s) and Denies weight loss Eyes Denies change in vision, Denies diplopia and Denies eye pain ENT Denies vertigo, Denies dizziness, Denies headache(s) and Denies nasal discharge Card Denies chest pain, Denies rapid heart rate and Denies dyspnea on exertion Resp Denies chest congestion, Denies cough, Denies pain with cough and Denies dyspnea on exertion GI Denies abdominal pain, Denies hematochezia and Denies change in bowel habits Musc Denies myalgias, Denies arthralgias and Denies joint swelling Skin/Breast Denies lesions and Denies unusual bruising Neuro Denies vertigo, Denies dizziness, Denies headache(s) and Denies focal weakness Endo Denies fatigue Physical exam (Primary Care) Vital Signs: Last Vital Signs Pulse 96 02/15/24 10:47 BP 144/90 H 02/15/24 10:47 Pulse Ox 95 02/15/24 10:47 Oxygen Delivery Method Room Air 02/15/24 10:47 BMI result Body Mass Index 34.3 Tobacco/Smoking Status: Tobacco use Status Tobacco use date assessed 02/15/24 02/15/24 10:48 Patient Tobacco Use Status Never used Tobacco 02/15/24 10:48 e-Cigarette/Vaping Use Never Used 02/15/24 10:48 PHQ-9: PHQ-9 Score PHQ-9: Total score 0 02/15/24 10:48 Depression Screening Interpretation: Negative Thrive Assessment: Date of Thrive Assessment Date Thrive assessed 02/15/24 02/15/24 10:48 Currently or been in a relationship where the following occur: I choose not to answer Const General: cooperative, healthy appearing and no acute distress Orientation/consciousness: oriented to person, oriented to place and oriented to time HENMT Head: Yes normal to inspection, Yes normocephalic and Yes atraumatic Mouth: Normal oral and palatal mucosa present and tongue normal Throat: Yes posterior oropharynx normal and Yes uvula midline Eyes General: appearance normal, both eyes and all related structures Neck Neck: Yes normal visual inspection, Yes full ROM and Yes no lymphadenopathy Thyroid: Thyroid normal Carotids: normal carotid upstroke Chest Chest palpation & inspection: normal inspection of the chest Resp Effort & Inspection: normal respiratory effort and able to speak in complete sentences Auscultation: clear to auscultation bilaterally Cardio Jugular venous distension: no JVD Palpation: normal PMI Rate: regular rate Rhythm: regular rhythm Heart sounds: S1 normal heart sound present and S2 normal heart sound present GI Inspection: Yes normal to inspection Palpation (GI): Soft to palpation and No hepatosplenomegaly present Auscultation: normal bowel sounds General: Yes no CVA tenderness Back/Spine/Pelvis Back: no CVA tenderness Skin General skin exam: no rashes or lesions noted Neuro General: oriented to person, oriented to place and oriented to time Extrem General: Yes normal to inspection and Yes full ROM Coding Level of Care Code Est Pt Prev Care 40-64y(35499) Diagnoses Physical exam Z00.00 Hyperlipidemia E78.5 Additional Codes RONAL-7 Assessment Billing - RONAL-7 Assessment Tool: RONAL-7 Assessment 58991 ([id number]) PHQ-9 - 23244 - PHQ-9 Billing: Yes ([id number]) Assessment & Plan Assessment & Plan (1) Physical exam: Code(s): Z00.00 - Encounter for general adult medical examination without abnormal findings Category: Medical Plan: stable (2) Hyperlipidemia: Code(s): E78.5 - Hyperlipidemia, unspecified Category: Medical Plan: stable; same rx
== END 2024-02-15 11:07 | disposition home or self-care (01) ==
PROVIDERS: PCP Internal Medicine; Visit Provider Internal Medicine
DX: Z00.00 Encounter for general adult medical examination without abnormal findings (principal); E78.5 Hyperlipidemia, unspecified

== ENCOUNTER → 2024-02-15 10:39 | Outpatient (BNVA) | payer OTHER, SELFPAY | PROVIDERS: PCP Internal Medicine; Visit Provider Internal Medicine | DX: Z00.00 Encounter for general adult medical examination without abnormal findings (principal); E78.5 Hyperlipidemia, unspecified | CPT/HCPCS: 96127 ==

== ENCOUNTER 2024-04-30 06:05 | Outpatient (REF) | payer OTHER, SELFPAY ==
[2024-04-30 07:36] LABS: Cholesterol 204 mg/dL (<200); HDL Cholesterol 49 mg/dL (>40)
[2024-04-30 07:44] LABS: LDL Cholesterol Calculated 108 mg/dL (<100); Triglycerides 239 mg/dL (<150)
== END 2024-04-30 06:06 | disposition home or self-care (01) ==
LOC: HO.LAB 06:05
PROVIDERS: PCP Internal Medicine; Visit Provider Internal Medicine
DX: Z13.220 Encounter for screening for lipoid disorders (principal); Z13.6 Encounter for screening for cardiovascular disorders
CPT/HCPCS: 36415; 80061

== ENCOUNTER 2024-05-01 11:09 | Outpatient (AMB) | payer OTHER, SELFPAY ==
[2024-05-01 11:11] VITALS: BP 136/88; PULSE 82; O2SAT 98; BMI 34.2
--- NOTE | 2024-05-01 11:11 | MHC.PC.OV ---
Vital Signs 05/01/24 11:11 Height 5 ft 11 in Weight 245 lb BMI 34.2 BP 136/88 Blood Pressure Location Lt brachial Position Sitting Pulse 82 Pulse Source Pulse Oximeter Pulse Oximetry (%) 98 Oxygen Delivery Method Room Air Intake Visit Reasons: 3mth f/u - due for colonoscopy Allergies amoxicillin [AMOXICILLIN] Allergy (Intermediate, Verified 05/01/24 11:11) HIVES/DIARRHEA Medication List - Last Reconciled 05/01/24 by Salde Chaves MD lovastatin 40 mg PO DAILY Tobacco use date assessed: 05/01/24 Dental Screening Dental Screen Date: 05/01/24 Did you have a dental visit in the last 12 months?: Yes Did you have a dental problem in the last 6 months where you did not have access to dental care?: No Was dental information given to patient?: Patient has dentist HPI 3mth f/u - due for colonoscopy HPI Details hyperlipidemia on rx; dietary indiscretion PFSH Medical History Obesity Hyperlipidemia Surgical History No pertinent past surgical history Family History Father Lung cancer Mother CAD (coronary artery disease) Liver cancer Myocardial infarction Brother No problems noted. Social History Housing: House Alcohol intake: current Alcohol intake frequency: a few times a month Patient Tobacco Use Status: Never used Tobacco Tobacco use type: Cigarette e-Cigarette/Vaping Use: Never Used Second Hand Smoke Exposure: No service: No Current occupational status: employed Cognitive needs: No Hearing needs: No Vision needs: Yes Questionnaire PHQ-9 Over the last 2 weeks, how often have you been bothered by any of the following problems? 1. Little interest or pleasure in doing things: not at all 2. Feeling down, depressed, or hopeless: not at all 3. Trouble falling or staying asleep, or sleeping too much: not at all 4. Feeling tired or having little energy: not at all 5. Poor appetite or overeating: not at all 6. Feeling bad about yourself - or that you are a failure or have let yourself or your family down: not at all 7. Trouble concentrating on things, such as reading the newspaper or watching television: not at all 8. Moving or speaking so slowly that other people could have noticed. Or the opposite - being so fidgety or restless that you have been moving around a lot more than usual: not at all 9. Thoughts that you would be better off or of hurting yourself in some way: not at all Total score: 0 Depression Screening Interpretation: Negative Depression Screening Done: Yes 53120 - PHQ-9 Billing: Yes Source: Developed by Drs. Elvin Perdomo, Maribel Beverly, Roberth Galvin and colleagues, with an educational parisa from [employer]. Thrive Questionnaire Date Thrive assessed: 05/01/24 AUDIT C Alcohol Use Questionnaire (AUDIT-C) 1. How often do you have a drink containing alcohol?: 2-3 times a week 2. How many drinks containing alcohol do you have on a typical day when you are drinking?: 1 or 2 3. How often do you have six or more drinks on one occasion?: Never Total Score: 3 RONAL-7 AMB Questionnaire RONAL-7 Date RONAL - 7 assessed: 05/01/24 Feeling nervous, anxious, or on edge: 0 = Not at all Not being able to stop or control worryin = Not at all Worrying too much about different things: 0 = Not at all Trouble relaxin = Not at all Being so restless that it is hard to sit still: 0 = Not at all Becoming easily annoyed or irritable: 0 = Not at all Feeling afraid as if something awful might happen: 0 = Not at all Total RONAL-7 score (0-4 normal; 5-9 mild; 10-14 moderate; 15-21 severe): 0 Source: Developed by Drs. Elvin Perdomo, Maribel Beverly, Roberth Galvin and colleagues, with an educational parisa from [employer]. RONAL-7 Assessment Billing RONAL-7 Assessment Tool: RONAL-7 Assessment 05520 Review of Systems Const Denies chills, Denies headache(s) and Denies weight loss ENT Denies headache(s) Card Denies chest pain, Denies syncope, Denies irregular heart rhythm and Denies dyspnea Resp Denies chest congestion, Denies cough and Denies dyspnea GI Denies abdominal pain, Denies change in stool character, Denies nausea and Denies vomiting Musc Denies deformity and Denies joint swelling Neuro Denies syncope and Denies headache(s) Physical exam (Primary Care) Vital Signs: Last Vital Signs Pulse 82 05/01/24 11:11 BP 136/88 05/01/24 11:11 Pulse Ox 98 05/01/24 11:11 Oxygen Delivery Method Room Air 05/01/24 11:11 BMI result Body Mass Index 34.2 Tobacco/Smoking Status: Tobacco use Status Tobacco use date assessed 05/01/24 05/01/24 11:15 Patient Tobacco Use Status Never used Tobacco 05/01/24 11:15 Tobacco use type Cigarette 05/01/24 11:15 e-Cigarette/Vaping Use Never Used 05/01/24 11:15 PHQ-9: PHQ-9 Score PHQ-9: Total score 0 05/01/24 11:15 Depression Screening Interpretation: Negative Thrive Assessment: Date of Thrive Assessment Date Thrive assessed 05/01/24 05/01/24 11:15 Const General: cooperative, comfortable, no acute distress and alert Neck Neck: Yes no lymphadenopathy Thyroid: Thyroid normal Resp Effort & Inspection: normal respiratory effort Auscultation: clear to auscultation bilaterally Percussion: percussion normal Cardio Jugular venous distension: no JVD Palpation: normal PMI Rate: regular rate Rhythm: regular rhythm Heart sounds: S1 normal heart sound present and S2 normal heart sound present GI Inspection: Yes normal to inspection Palpation (GI): No hepatosplenomegaly present Skin General skin exam: no rashes or lesions noted Extrem General: Yes no clubbing, cyanosis or edema Coding Level of Care Code Est Pt Level 3 (57872) Diagnoses Hyperlipidemia E78.5 Additional Codes RONAL-7 Assessment Billing - RONAL-7 Assessment Tool: RONAL-7 Assessment 72974 ([id number]) PHQ-9 - 37232 - PHQ-9 Billing: Yes ([id number]) Assessment & Plan Assessment & Plan (1) Hyperlipidemia: Code(s): E78.5 - Hyperlipidemia, unspecified Category: Medical Plan: improve diet; same rx
== END 2024-05-01 11:39 | disposition home or self-care (01) ==
PROVIDERS: PCP Internal Medicine; Visit Provider Internal Medicine
DX: E78.5 Hyperlipidemia, unspecified (principal)

== ENCOUNTER → 2024-05-01 11:09 | Outpatient (BNVA) | payer OTHER, SELFPAY | PROVIDERS: PCP Internal Medicine; Visit Provider Internal Medicine | DX: E78.5 Hyperlipidemia, unspecified (principal) | CPT/HCPCS: 96127 ==

== ENCOUNTER 2024-07-22 10:45 | Outpatient (REF) | payer OTHER, SELFPAY ==
[2024-07-22 11:29] LABS: Hemoglobin 15.9 g/dl (14.0-18.0); Mean Corpuscular HGB Conc 35.3 g/dl (31.0-36.0); Mean Corpuscular Hemoglobin 33.2 pg (27.0-33.0); Mean Corpuscular Volume 93.9 fL (80.0-98.0); Mean Platelet Volume 8.4 fL (9.4-12.4); Platelet Count 205 X10*3/uL (160-400); Red Blood Count 4.79 X10*6/uL (4.60-5.80); Red Cell Distribution Width 11.6 % (11.0-16.0); White Blood Count 5.8 X10*3/uL (4.8-10.8)
[2024-07-22 12:09] LABS: Alanine Aminotransferase 38 U/L (0-40); Albumin Level 4.4 g/dL (3.5-5.0); Alkaline Phosphatase 100 U/L (39-117); Anion Gap 11 (12-20); Aspartate Amino Transferase 33 U/L (5-37); Bilirubin Total 0.6 mg/dL (0.0-1.0); Blood Urea Nitrogen 17 mg/dL (9-16); Calcium 9.1 mg/dL (8.4-10.2); Carbon Dioxide 26 mmol/L (22-29); Chloride 106 mmol/L (96-108); Cholesterol 170 mg/dL (<200); Estimated Glomerular Filt Rate > 60; Glucose Fasting 136 mg/dL (60-99); HDL Cholesterol 43 mg/dL (>40); LDL Cholesterol Calculated 87 mg/dL (<100); Sodium 139 mmol/L (135-145); Total Protein 6.9 g/dL (6.5-8.0); Triglycerides 202 mg/dL (<150)
[2024-07-22 12:14] LABS: Prostate Specific Antigen Scr 0.59 ng/mL (<0.05-4.0)
== END 2024-07-22 10:46 | disposition home or self-care (01) ==
LOC: HO.LAB 10:45
PROVIDERS: PCP Physician Assistant; Visit Provider Physician Assistant
DX: E78.5 Hyperlipidemia, unspecified (principal); Z12.5 Encounter for screening for malignant neoplasm of prostate
CPT/HCPCS: 36415; 80053; 80061; 84153; 85027

== ENCOUNTER 2024-07-23 11:03 | Outpatient (AMB) | payer OTHER, SELFPAY ==
--- NOTE | 2024-07-23 11:38 | A.OFFPC_ITS ---
Vital Signs 07/23/24 11:39 Height 5 ft 11 in Weight 248 lb BMI 34.6 BP 144/78 H Blood Pressure Location Lt brachial Position Sitting Pulse 100 Pulse Source Pulse Oximeter Pulse Oximetry (%) 96 Oxygen Delivery Method Room Air Intake Visit Reasons: JIGNA Dr Chaves Instrumentation Technician Required: No Accompanied by: Self / Same As Patient Allergies amoxicillin [AMOXICILLIN] Allergy (Intermediate, Verified 07/23/24 11:45) HIVES/DIARRHEA Medication List - Last Reconciled 07/23/24 by Jaziel Chaidez PA-C lovastatin 40 mg PO DAILY Tobacco use date assessed: 05/01/24 Dental Screening Dental Screen Date: 05/01/[address] Chaves HPI Details Patient is a 59-year-old male here today for a transfer of care visit. Previous PCP was Dr. Chaves. Patient has a past medical history significant for obesity, hyperlipidemia. Noted patient to have elevated blood pressure readings several times at follow- up visits. Has not been on any blood pressure medication. .. Hyperlipidemia: Most recent lipid panel showing decent control of his total cholesterol and LDL. Still has borderline high triglycerides. He continues on lovastatin daily with decent affect on his lipid panel. .. Elevated fasting blood sugar: Obesity: Patient does understand his BMI is over 30 will work on being more physically active and adapting to better eating habits to reduce his weight PFSH Medical History Obesity Hyperlipidemia Surgical History No pertinent past surgical history Family History (Updated 07/23/24 @ 12:00 by Jaziel Chaidez PA-C) Mother CAD (coronary artery disease) Liver cancer Myocardial infarction Afib Brother No problems noted. Father Mesothelioma of lung Social History Housing: House Alcohol intake: current Alcohol intake frequency: a few times a month Patient Tobacco Use Status: Never used Tobacco Tobacco use type: Cigarette e-Cigarette/Vaping Use: Never Used Second Hand Smoke Exposure: No service: No Current occupational status: employed Cognitive needs: No Hearing needs: No Vision needs: Yes Questionnaire PHQ-9 Over the last 2 weeks, how often have you been bothered by any of the following problems? 1. Little interest or pleasure in doing things: not at all 2. Feeling down, depressed, or hopeless: not at all 3. Trouble falling or staying asleep, or sleeping too much: not at all 4. Feeling tired or having little energy: not at all 5. Poor appetite or overeating: not at all 6. Feeling bad about yourself - or that you are a failure or have let yourself or your family down: not at all 7. Trouble concentrating on things, such as reading the newspaper or watching television: not at all 8. Moving or speaking so slowly that other people could have noticed. Or the opposite - being so fidgety or restless that you have been moving around a lot more than usual: not at all 9. Thoughts that you would be better off or of hurting yourself in some way: not at all Total score: 0 Depression Screening Interpretation: Negative Depression Screening Done: Yes 04652 - PHQ-9 Billing: Yes Source: Developed by Drs. Elvin Perdomo, Maribel Beverly, Roberth Galvin and colleagues, with an educational parisa from [employer]. Thrive Questionnaire Date Thrive assessed: 05/01/24 I am a: Patient What is your living situation today?: I have a steady place to live Within the past 12 months, did the food you bought not last and you didn't have the money to get more?: I choose not to answer this question Within the past 12 months, did you worry whether your food would run out before you got money to buy more?: I choose not to answer this question Do you have trouble paying for medicines?: No Do you have trouble getting transportation to medical appointments?: No Do you have trouble paying your heating and electricity bill?: No Do you have trouble taking care of your child, family member or friend?: No Do you have trouble with day-to-day activities such as bathing, preparing meals, shopping, managing finances, etc.?: No Are you currently unemployed and looking for a job?: No Are you interested in more education?: No Please select the resources that you would like help with: None Currently or been in a relationship where the following occur: I choose not to answer THRIVE Score: 0 AUDIT C Alcohol Use Questionnaire (AUDIT-C) 1. How often do you have a drink containing alcohol?: Never 2. How many drinks containing alcohol do you have on a typical day when you are drinking?: 1 or 2 3. How often do you have six or more drinks on one occasion?: Never Total Score: 0 RONAL-7 AMB Questionnaire RONAL-7 Date RONAL - 7 assessed: 07/23/24 Feeling nervous, anxious, or on edge: 0 = Not at all Not being able to stop or control worryin = Not at all Worrying too much about different things: 0 = Not at all Trouble relaxin = Not at all Being so restless that it is hard to sit still: 0 = Not at all Becoming easily annoyed or irritable: 0 = Not at all Feeling afraid as if something awful might happen: 0 = Not at all Total RONAL-7 score (0-4 normal; 5-9 mild; 10-14 moderate; 15-21 severe): 0 Source: Developed by Drs. Elvin Perdomo, Maribel Beverly, Roberth Galvin and colleagues, with an educational parisa from [employer]. RONAL-7 Assessment Billing RONAL-7 Assessment Tool: RONAL-7 Assessment 11223 Review of Systems Const Denies headache(s) Eyes Denies loss of vision ENT Denies vertigo, Denies dizziness, Denies headache(s) and Denies sore throat Card Denies chest pain, Denies leg edema and Denies lightheadedness Resp Denies cough, Denies hemoptysis and Denies wheezing GI Denies abdominal pain, Denies melena, Denies constipation, Denies diarrhea and Denies vomiting Denies dysuria, Denies urinary frequency and Denies urinary urgency Musc Denies arthralgias, Denies joint swelling, Denies numbness and Denies tingling Neuro Denies Abnormal speech present, Denies behavioral changes, Denies vertigo, Denies dizziness, Denies headache(s), Denies loss of vision, Denies memory loss, Denies numbness and Denies tingling Psych Denies anxiety, Denies behavioral changes, Denies depression, Denies memory loss and Denies panic attacks Baljinder/Lymph Denies easy bleeding and Denies easy bruising Aller/Immun Denies wheezing Physical exam (Primary Care) Vital Signs: Last Vital Signs Pulse 100 07/23/24 11:39 BP 144/78 H 07/23/24 11:39 Pulse Ox 96 07/23/24 11:39 Oxygen Delivery Method Room Air 07/23/24 11:39 BMI result Body Mass Index 34.6 Tobacco/Smoking Status: Tobacco use Status Tobacco use date assessed 05/01/24 07/23/24 11:43 Patient Tobacco Use Status Never used Tobacco 07/23/24 11:43 Tobacco use type Cigarette 07/23/24 11:43 e-Cigarette/Vaping Use Never Used 07/23/24 11:43 PHQ-9: PHQ-9 Score PHQ-9: Total score 0 07/23/24 11:49 Depression Screening Interpretation: Negative Thrive Assessment: Date of Thrive Assessment Date Thrive assessed 05/01/24 07/23/24 11:43 Currently or been in a relationship where the following occur: I choose not to answer Const General: healthy appearing, no acute distress, alert and awake Nutritional Appearance: well nourished Orientation/consciousness: oriented to person, oriented to place and oriented to time HENMT Ears: TM's normal bilaterally General nose exam: Normal nasal mucous membranes and turbinates present Eyes Conjunctivae: conjunctivae normal Sclerae: sclerae normal Pupils: Equal, round and reactive pupils present Neck Neck: Yes no lymphadenopathy and Yes no JVD Thyroid: Thyroid normal Carotids: no bruits Resp Effort & Inspection: normal respiratory effort and not tachypneic Auscultation: no crackles, no rales, no rhonchi and no wheezes Cardio Rate: regular rate Rhythm: regular rhythm Heart sounds: no murmurs and normal S1 and S2 GI Palpation (GI): Soft to palpation, nontender, no hepatomegaly and no splenomegaly Auscultation: normal bowel sounds Skin General skin exam: no rashes or lesions noted and dry skin Neuro General: oriented to person, oriented to place and oriented to time Cranial nerves: Yes Equal, round and reactive pupils present Speech: No Abnormal speech present Gait exam (Neuro): Normal gait present Motor exam (neuro): no tremor noted Extrem Right upper extremity: full ROM Left upper extremity: full ROM Right lower extremity: full ROM; no edema Left lower extremity: full ROM; no edema Psych Mental Status: mental status grossly normal Speech and movement: Normal speech and movement present Affect: normal affect Attitude: cooperative Thought process: Normal thought process present Results AMB Hemoglobin A1c AMB Hemoglobin A1c 5.6 % Last Edit by QUOC Gracia on 07/23/24 11:51 Coding Diagnoses Class 1 obesity E66.811 Mixed hyperlipidemia E78.2 Hyperlipidemia type: mixed hyperlipidemia Elevated fasting blood sugar R73.01 Primary hypertension I10 Hypertension type: primary hypertension Additional Codes RONAL-7 Assessment Billing - RONAL-7 Assessment Tool: RONAL-7 Assessment 90396 ([id number]) PHQ-9 - 28906 - PHQ-9 Billing: Yes ([id number]) Assessment & Plan Assessment & Plan (1) Class 1 obesity: Code(s): E66.811 - Obesity, class 1 Category: Medical (2) Hyperlipidemia: Code(s): E78.5 - Hyperlipidemia, unspecified Category: Medical Qualifiers: Hyperlipidemia type: mixed hyperlipidemia Qualified Code(s): E78.2 - Mixed hyperlipidemia (3) Elevated fasting blood sugar: Code(s): R73.01 - Impaired fasting glucose Category: Medical Plan: Noted to have elevated fasting blood sugar most recent labs, today's A1c of 5.6 (4) HTN (hypertension): Code(s): I10 - Essential (primary) hypertension Category: Medical Qualifiers: Hypertension type: primary hypertension Qualified Code(s): I10 - Essential (primary) hypertension Orders: Orders Microalbumin, Random (w Creat) Today I10 - Essential (primary) hypertension Lipid Panel Today E78.2 - Mixed hyperlipidemia AMB Hemoglobin A1c Today R73.01 - Impaired fasting glucose Comprehensive Russell. Panel Fast Today E78.2 - Mixed hyperlipidemia Complete Blood Count no Diff Today E78.2 - Mixed hyperlipidemia Medications: New blood pressure monitor As directed 1 ea 0RF I10 - Essential (primary) hypertension Changed From lovastatin 40 mg PO DAILY 90 tabs 8RF E78.2 - Mixed hyperlipidemia To lovastatin 40 mg PO DAILY 90 days 90 tabs 2RF E78.2 - Mixed hyperlipidemia
[2024-07-23 11:39] VITALS: BP 144/78; PULSE 100; O2SAT 96; BMI 34.6
== END 2024-07-23 12:05 | disposition home or self-care (01) ==
LOC: HO.HMCH 11:04
PROVIDERS: PCP Physician Assistant; Visit Provider Physician Assistant
DX: R73.01 Impaired fasting glucose (principal)

== ENCOUNTER → 2024-07-23 11:03 | Outpatient (BNVA) | payer OTHER, SELFPAY | PROVIDERS: PCP Physician Assistant; Visit Provider Physician Assistant | DX: E66.811 Obesity, class 1 (principal); E78.2 Mixed hyperlipidemia; R73.01 Impaired fasting glucose; I10 Essential (primary) hypertension; Z68.34 Body mass index [BMI] 34.0-34.9, adult | CPT/HCPCS: 83036; 96127 ==

== ENCOUNTER 2024-08-13 15:18 | Outpatient (AMB) | payer OTHER, SELFPAY ==
--- NOTE | 2024-08-13 15:20 | MHC.OFFVIS ---
Vital Signs 08/13/24 15:22 Height 5 ft 11 in Weight 248 lb BMI 34.6 BP 149/83 H Blood Pressure Location Lt brachial Position Sitting Pulse 102 H Pulse Oximetry (%) 96 Oxygen Delivery Method Room Air Intake Visit Reasons: colo screening Intake Note: Patient new consult for 2nd pre Colonoscopy screening. Patient denies any GI issues. Commercial Lender Required: No Accompanied by: Self / Same As Patient Allergies amoxicillin (AMOXICILLIN) Allergy (Intermediate, Verified 08/13/24 15:20) HIVES/DIARRHEA Medication List - Last Reconciled 08/13/24 by Mariann Mike CNP bisacodyl 5 mg PO ONCE 1 day blood pressure monitor As directed lovastatin 40 mg PO DAILY 90 days polyethylene glycol 3350 (Miralax) 238 grams PO ONCE HPI HPI colo screening: Details: Patient is a 59-year-old male with PMH of obesity, hyperlipidemia. Referred by PCP for pre colonoscopy screening This will be his second colonoscopy. His last colonoscopy in April 2018 showed one polyp, which was removed. Loki has noticed no changes in bowel habits, evacuating every other day without straining, loose stools, or blood in stools. He denies abdominal pain. Loki reports intermittent heartburn, particularly triggered by alcohol consumption, specifically whiskey sours. He manages it with [id number] antacids like Tums, which provide relief within an hour. No symptoms of regurgitation, dysphagia, nausea, or vomiting. His weight has been stable around 248 lbs. Patient denies: fever/chills, n/v, appetite changes, unintentional wt loss, ab pain or melena/hematochezia. Social History - Diet: Unrestricted diet, enjoys a variety of foods. - Alcohol/Tobacco/Drug Use: Consumes alcohol on weekends, about 6-8 drinks (Twisted Teas) on Saturdays. No history of tobacco or recreational drug use. 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 - family hx as below -denies personal hx of CA -denies significant cardiopulmonary history -tolerated anesthesia in the past without difficulty. [facility] Medical History (Updated 08/13/24 @ 16:07 by Mariann Mike CNP) Mild acid reflux Obesity Hyperlipidemia Surgical History No pertinent past surgical history Family History Mother CAD (coronary artery disease) Liver cancer Myocardial infarction Afib Brother No problems noted. Father Mesothelioma of lung Social History Housing: House Alcohol intake: current Alcohol intake frequency: a few times a month Patient Tobacco Use Status: Never used Tobacco Tobacco use type: Cigarette e-Cigarette/Vaping Use: Never Used Second Hand Smoke Exposure: No service: No Current occupational status: employed Cognitive needs: No Hearing needs: No Vision needs: Yes Review of Systems Const Reports as per HPI ENT Reports as per HPI Card Reports as per HPI Resp Reports as per HPI GI Reports as per HPI Reports as per HPI Physical Exam Vital Signs: Last Vital Signs Pulse 102 H 08/13/24 15:22 BP 149/83 H 08/13/24 15:22 Pulse Ox 96 08/13/24 15:22 Oxygen Delivery Method Room Air 08/13/24 15:22 BMI result Body Mass Index 34.6 Const General: healthy appearing, no acute distress and well developed Nutritional Appearance: well nourished Orientation/consciousness: patient oriented x3 HEENT Head: Yes normal to inspection, Yes normocephalic and Yes atraumatic Face and sinus: Yes normal facial exam Eyes General: appearance normal, both eyes and all related structures Neck Neck: Yes normal visual inspection Resp Effort & Inspection: normal respiratory effort, able to speak in complete sentences, no tracheal deviation and symmetric chest movement Auscultation: clear to auscultation bilaterally Cardio Jugular venous distension: no JVD Rate: regular rate Rhythm: regular rhythm Heart sounds: S1 normal heart sound present, S2 normal heart sound present, no gallops and no murmurs GI Inspection: Yes normal to inspection, No distended and Yes obesity Palpation (GI): Soft to palpation, not firm, nontender and No hepatosplenomegaly present Auscultation: normal bowel sounds Neuro General: patient oriented x3 Gait exam (Neuro): Normal gait present Psych Appearance: grossly normal Mental Status: mental status grossly normal Speech and movement: Normal speech and movement present Affect: normal affect Attitude: cooperative Thought process: Normal thought process present Thought content: Normal thought content present Insight: Good insight present (Psych) Judgement: Good judgement present (Psych) Assessment & Plan Assessment & Plan (1) Colon cancer screening: Comment: 06/09/2018 colonoscopy ( [facility]) complete with excellent prep, descending colon polypoid with prominent lymphoid aggregate Code(s): Z12.11 - Encounter for screening for malignant neoplasm of colon Category: Medical Plan: Due for polyp surveillance colonoscopy Medications: -prescriptions for laxative tablets and MiraLax sent to pharmacy; instructions for Gatorade purchase and clear liquid diet given. Patient educated on scheduling process, procedure preparation, including avoiding certain foods and ensuring clear liquid intake Advised on necessity for ride post-procedure due to sedation. (2) Mild acid reflux: Code(s): K21.9 - Gastro-esophageal reflux disease without esophagitis Category: Medical Plan: Infrequent, mild symptoms responsive to OTC antacids; no alarm features Additional Tests: Upper endoscopy (EGD) to be performed concurrently with colonoscopy for comprehensive evaluation Medications: Continue OTC antacids as needed; no prescription required at this time Education on GERD prevention : -Advised against heavy meals; encouraged small, frequent meals instead of large ones. - Instructed to remain upright for 2?3 hours after eating. - Advised to avoid late-night meals, spicy foods, caffeine, alcohol, known dietary triggers, and tight-fitting clothing. - Emphasis placed on gradual implementation of lifestyle changes to improve adherence and symptom control. Plan Follow-up after endoscopy or sooner as needed Time: I spent a total of 20 minutes on the date of encounter which includes: Preparing to see the patient (reviewed previous documentation, test results and medical history) Performing a medically appropriate exam and/or evaluation Ordering medications, tests, and procedures Documenting clinical information in the health record Medications: New polyethylene glycol 3350 (Miralax) per colonoscopy prep instructions 238 grams PO ONCE 238 grams 0RF bisacodyl Take four tablets once for 1 day per colonoscopy instructions 5 mg PO ONCE 4 tabs 0RF 1 day Coding Level of Care Code New Pt New Pt Level 3 (28743) Patient Type New Diagnoses Colon cancer screening Z12.11 Mild acid reflux K21.9
[2024-08-13 15:22] VITALS: BP 149/83; PULSE 102; O2SAT 96; BMI 34.6
== END 2024-08-13 15:56 | disposition home or self-care (01) ==
LOC: HO.HGI 15:18
PROVIDERS: PCP Physician Assistant; Visit Provider Nurse Practitioner Family
DX: Z01.818 Encounter for other preprocedural examination (principal); Z12.11 Encounter for screening for malignant neoplasm of colon; K21.9 Gastro-esophageal reflux disease without esophagitis
CPT/HCPCS: 99203

== ENCOUNTER → 2024-08-13 15:18 | Outpatient (BNVA) | payer OTHER, SELFPAY | PROVIDERS: PCP Physician Assistant; Visit Provider Nurse Practitioner Family ==

== ENCOUNTER 2024-10-31 06:06 | Outpatient (REF) | payer OTHER, SELFPAY ==
--- OUTSIDE RECORDS SUMMARY | 2024-10-31 06:10 | XMS_ITS | Clinical Summary ---
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 11/25/2023 Active neomycin-polymyx in B-hydrocortisone (CORTOMYCIN) 3.5-10,000-1 mg/mL-unit/mL-% otic suspension Place 3 drops into the right ear 4 (four) times a day. 10 mL 12/22/2023 Active Social History Tobacco Use Types Packs/Day Years Used Date Smoking Tobacco: Never Assessed Education Answer Date Recorded Are you interested in more education? Not on antony e 12/22/2023 Are you concerned about learning? Not on file 12/22/2023 No 12/22/2023 No 12/22/2023 Digital Access Answer Date Recorded No 12/22/2023 No 12/22/2023 Reliable internet access at home? Not on file 12/22/2023 Device with a working camera? Not on file Sex and Gender Information Value Date Recorded Sex Assigned at Not on file Legal Sex Male 11:21 AM EDT Gender Identity Not on file Sexual Orientation Not on file Last Filed Vital Signs Vital Sign Reading Time Taken Comments Blood Pressure 148/94 12/22/2023 1:07 PM EDT Pulse 87 12/22/2023 1:07 PM EDT Temperature 36.3 C (97.4 F) 12/22/2023 1:07 PM EDT Respiratory Rate 20 12/22/2023 1:07 PM EDT Oxygen Saturation 98% 12/22/2023 1:07 PM EDT Inhaled Oxygen Concentration - - Weight 109.3 kg (241 lb) 12/22/2023 1:07 PM EDT Height 182.9 cm (6') 12/22/2023 1:07 PM EDT Body Mass Index 32.69 12/22/2023 1:07 PM EDT Plan of Treatment Health Maintenance Due Date Last Done Comments Adult Td,Tdap Booster 1966 LIPID PANEL 1966 DEPRESSION SCREENING 1978 SMOKING Hx and SMOKELESS TOB ACCO SCREENING 1979 HEPATITIS C SCREENING 02/12/1984 HIV ONE-TIME SCREENING (18-6 5 YEARS) 02/12/1984 SCREENING FOR DIABETES 2001 COLOGUARD 2011 COLONOSCOPY 2011 COLORECTAL CANCER SCREENING 2011 FIT TEST 2011 FOBT 2011 SIGMOIDOSCOPY 2011 VIRTUAL COLONOSCOPY 2011 PNEUMOCOCCAL VACCINES (50+ y ears) (1 of 1 - PCV) 02/12/2016 ZOSTER VACCINES (1 of 2) 02/12/2016 COVID-19 VACCINE (1 - 2023-2 5 season) 2023 HEPATITIS A VACCINES Aged Out No long er eligible based on patient's age to complete this topic HIB VACCINES Aged Out No longer eligi ble based on patient's age to complete this topic MENINGOCOCCAL VACCINES (ACWY) Aged Out No longer eligible based on patient's age to complete this topic MENINGOCOCCAL VACCINES (B) Aged Out N o longer eligible based on patient's age to complete this topic Medical Devices Not on file Insurance [facility] Address[facility] [address] [address] [facility] Member Subscriber Plan / Payer (Ef fective 2023-Present) Name:Marco Antonio Faustiny Relation to Subscriber:Self Name:FaustinMarco Antonio wilsony Payer ID:Not on file Type:O Address: [place] [id number] [facility] Address: [address] [address] Care Teams Hole Digger Truck Driver Relationship Specialty Start Date End Date Slade Chaves MD [address] [place] [address] [place] [address] PCP - General Internal Medicine 12/22/23 Additional Source Comments The information contained in this document represents components of the legal health record. It is not the complete legal health record.[facility]
[2024-10-31 07:42] LABS: Hematocrit 45.3 % (42.0-52.0); Hemoglobin 15.5 g/dl (14.0-18.0); Mean Corpuscular HGB Conc 34.2 g/dl (31.0-36.0); Mean Corpuscular Hemoglobin 32.6 pg (27.0-33.0); Mean Corpuscular Volume 95.2 fL (80.0-98.0); NRBC Abs Auto 0.000 X10*3/uL (0.0-0.012); NRBC Pct Auto 0.0 /100WBC (0.0-0.2); Platelet Count 219 X10*3/uL (160-400); Red Blood Count 4.76 X10*6/uL (4.60-5.80); White Blood Count 6.0 X10*3/uL (4.8-10.8)
[2024-10-31 08:06] LABS: Alanine Aminotransferase 67 U/L (0-40); Albumin Level 4.5 g/dL (3.5-5.0); Alkaline Phosphatase 100 U/L (39-117); Anion Gap 12 (12-20); Aspartate Amino Transferase 50 U/L (5-37); Blood Urea Nitrogen 18 mg/dL (9-16); Calcium 8.8 mg/dL (8.4-10.2); Carbon Dioxide 25 mmol/L (22-29); Chloride 107 mmol/L (96-108); Cholesterol 193 mg/dL (<200); Estimated Glomerular Filt Rate > 60; HDL Cholesterol 44 mg/dL (>40); Potassium 4.1 mmol/L (3.3-5.1); Sodium 140 mmol/L (135-145); Total Protein 6.8 g/dL (6.5-8.0); Triglycerides 198 mg/dL (<150)
[2024-10-31 13:22] LABS: Microalbum/Creatinine Ratio Ur 11.9 ug/mg cr (<30)
== END 2024-10-31 06:07 | disposition home or self-care (01) ==
LOC: HO.LAB 06:06
PROVIDERS: PCP Physician Assistant; Visit Provider Physician Assistant
DX: E78.2 Mixed hyperlipidemia (principal); I10 Essential (primary) hypertension
CPT/HCPCS: 36415; 80053; 80061; 82043; 82570; 85027

== ENCOUNTER 2024-11-06 15:15 | Outpatient (AMB) | payer OTHER, SELFPAY ==
[2024-11-06 15:24] VITALS: BP 160/90; PULSE 93; RESP 18; TEMP 35.9; O2SAT 94; BMI 34.9
--- NOTE | 2024-11-06 15:24 | A.OFFPC_ITS ---
Vital Signs 11/06/24 15:24 Height 5 ft 11 in Weight 250 lb 2 oz BMI 34.9 BP 160/90 H Blood Pressure Location Lt brachial Position Sitting Respiration 18 Pulse 93 Pulse Source Pulse Oximeter Temp 96.6 F L Temp Source Temporal Artery Scan Pulse Oximetry (%) 94 Oxygen Delivery Method Room Air Intake Visit Reasons: f/u HTN Predictive Maintenance Technician Required: No Accompanied by: Self / Same As Patient Allergies amoxicillin (AMOXICILLIN) Allergy (Intermediate, Verified 11/06/24 15:37) HIVES/DIARRHEA Medication List - Last Reconciled 11/06/24 by Jaziel Chaidez PA-C bisacodyl 5 mg PO ONCE 1 day blood pressure monitor As directed lovastatin 40 mg PO DAILY 90 days polyethylene glycol 3350 (Miralax) 238 grams PO ONCE Tobacco use date assessed: 11/06/24 Dental Screening Dental Screen Date: 11/06/24 Did you have a dental visit in the last 12 months?: Yes Did you have a dental problem in the last 6 months where you did not have access to dental care?: No Was dental information given to patient?: Patient has dentist HPI f/u HTN HPI Details Patient is a 59-year-old male here today for follow-up visit. Patient has a past medical history significant for obesity, hyperlipidemia. ---> patient reports he has been started to take a beet supplement over the last 2 weeks. Have noted elevated liver enzymes on most recent labs. He reports feeling a bit jittery on the new supplement. Will discontinue the supplement Hypertension: Noted elevated blood pressure today in office. Patient now willing to start low-dose antihypertensive medication .. Hyperlipidemia: Most recent lipid panel showing decent control of his total cholesterol and LDL. Still has borderline high triglycerides. He continues on lovastatin daily with decent affect on his lipid panel. .. Elevated fasting blood sugar: FBS - 112 improved . Most recent A1c of 5.6 Class 1 Obesity: Patient does understand his BMI is over 30 will work on being more physically active and adapting to better eating habits to reduce his weight Laboratory Tests 05/10/23 07/22/24 10/31/24 09:09 11:03 06:31 RBC 4.76 Hgb 15.9 Creatinine 0.92 Fasting Glucose 103 H 136 H 112 H ALT 67 H Triglycerides 202 H 198 H Cholesterol 170 LDL Cholesterol, C alc 87 PSA Screen 0.59 Urine Microalbumin 10/31/24 11:00 RBC Hgb Creatinine Fasting Glucose ALT Triglycerides Cholesterol LDL Cholesterol, C alc PSA Screen Urine Microalbumin 16.0 PFSH Medical History Mild acid reflux Obesity Hyperlipidemia Surgical History No pertinent past surgical history Family History Mother CAD (coronary artery disease) Liver cancer Myocardial infarction Afib Brother No problems noted. Father Mesothelioma of lung Social History Housing: House Alcohol intake: current Alcohol intake frequency: a few times a month Patient Tobacco Use Status: Never used Tobacco Tobacco use type: Cigarette e-Cigarette/Vaping Use: Never Used Second Hand Smoke Exposure: No service: No Current occupational status: employed Cognitive needs: No Hearing needs: No Vision needs: Yes Questionnaire PHQ-9 Over the last 2 weeks, how often have you been bothered by any of the following problems? 1. Little interest or pleasure in doing things: not at all 2. Feeling down, depressed, or hopeless: not at all 3. Trouble falling or staying asleep, or sleeping too much: not at all 4. Feeling tired or having little energy: not at all 5. Poor appetite or overeating: not at all 6. Feeling bad about yourself - or that you are a failure or have let yourself or your family down: not at all 7. Trouble concentrating on things, such as reading the newspaper or watching television: not at all 8. Moving or speaking so slowly that other people could have noticed. Or the opposite - being so fidgety or restless that you have been moving around a lot more than usual: not at all 9. Thoughts that you would be better off or of hurting yourself in some way: not at all Total score: 0 Depression Screening Interpretation: Negative Depression Screening Done: Yes 67543 - PHQ-9 Billing: Yes Source: Developed by Drs. Elvin Perdomo, Maribel Beverly, Roberth Galvin and colleagues, with an educational parisa from [employer]. Thrive Questionnaire Date Thrive assessed: 11/06/24 I am a: Patient What is your living situation today?: I have a steady place to live Within the past 12 months, did the food you bought not last and you didn't have the money to get more?: I choose not to answer this question Within the past 12 months, did you worry whether your food would run out before you got money to buy more?: I choose not to answer this question Do you have trouble paying for medicines?: No Do you have trouble getting transportation to medical appointments?: No Do you have trouble paying your heating and electricity bill?: No Do you have trouble taking care of your child, family member or friend?: No Do you have trouble with day-to-day activities such as bathing, preparing meals, shopping, managing finances, etc.?: No Are you currently unemployed and looking for a job?: No Are you interested in more education?: No Please select the resources that you would like help with: None Currently or been in a relationship where the following occur: I choose not to answer THRIVE Score: 0 AUDIT C Alcohol Use Questionnaire (AUDIT-C) 1. How often do you have a drink containing alcohol?: Never 2. How many drinks containing alcohol do you have on a typical day when you are drinking?: 1 or 2 3. How often do you have six or more drinks on one occasion?: Never Total Score: 0 RONAL-7 AMB Questionnaire RONLA-7 Date RONAL - 7 assessed: 11/06/24 Feeling nervous, anxious, or on edge: 0 = Not at all Not being able to stop or control worryin = Not at all Worrying too much about different things: 0 = Not at all Trouble relaxin = Not at all Being so restless that it is hard to sit still: 0 = Not at all Becoming easily annoyed or irritable: 0 = Not at all Feeling afraid as if something awful might happen: 0 = Not at all Total RONAL-7 score (0-4 normal; 5-9 mild; 10-14 moderate; 15-21 severe): 0 Source: Developed by Drs. Elvin Perdomo, Maribel Beverly, Roberth Galvin and colleagues, with an educational parisa from [employer]. RONAL-7 Assessment Billing RONAL-7 Assessment Tool: RONAL-7 Assessment 65105 Review of Systems Const Denies headache(s) Eyes Denies loss of vision ENT Denies vertigo, Denies dizziness, Denies headache(s) and Denies sore throat Card Denies chest pain, Denies leg edema and Denies lightheadedness Resp Denies cough, Denies hemoptysis and Denies wheezing GI Denies abdominal pain, Denies melena, Denies constipation, Denies diarrhea and Denies vomiting Denies dysuria, Denies urinary frequency and Denies urinary urgency Musc Denies arthralgias, Denies joint swelling, Denies numbness and Denies tingling Neuro Denies Abnormal speech present, Denies behavioral changes, Denies vertigo, Denies dizziness, Denies headache(s), Denies loss of vision, Denies memory loss, Denies numbness and Denies tingling Psych Denies anxiety, Denies behavioral changes, Denies depression, Denies memory loss and Denies panic attacks Baljinder/Lymph Denies easy bleeding and Denies easy bruising Aller/Immun Denies wheezing Physical exam (Primary Care) Vital Signs: Last Vital Signs Temp 96.6 F L 11/06/24 15:24 Pulse 93 11/06/24 15:24 Resp 18 11/06/24 15:24 BP 160/90 H 11/06/24 15:24 Pulse Ox 94 11/06/24 15:24 Oxygen Delivery Method Room Air 11/06/24 15:24 BMI result Body Mass Index 34.9 BMI Assessment/Plan discussion: High BMI High, discussed plan: lifestyle, weight reduction, dietary and physical activity Tobacco/Smoking Status: Tobacco use Status Tobacco use date assessed 11/06/24 11/06/24 15:34 Patient Tobacco Use Status Never used Tobacco 11/06/24 15:34 Tobacco use type Cigarette 11/06/24 15:34 e-Cigarette/Vaping Use Never Used 11/06/24 15:34 PHQ-9: PHQ-9 Score PHQ-9: Total score 0 11/06/24 15:34 Depression Screening Interpretation: Negative Thrive Assessment: Date of Thrive Assessment Date Thrive assessed 11/06/24 11/06/24 15:34 Currently or been in a relationship where the following occur: I choose not to answer Const General: healthy appearing, no acute distress, alert and awake Nutritional Appearance: well nourished Orientation/consciousness: oriented to person, oriented to place and oriented to time HENMT Ears: TM's normal bilaterally General nose exam: Normal nasal mucous membranes and turbinates present Eyes Conjunctivae: conjunctivae normal Sclerae: sclerae normal Pupils: Equal, round and reactive pupils present Neck Neck: Yes no lymphadenopathy and Yes no JVD Thyroid: Thyroid normal Carotids: no bruits Resp Effort & Inspection: normal respiratory effort and not tachypneic Auscultation: no crackles, no rales, no rhonchi and no wheezes Cardio Rate: regular rate Rhythm: regular rhythm Heart sounds: no murmurs and normal S1 and S2 GI Palpation (GI): Soft to palpation, nontender, no hepatomegaly and no splenomegaly Auscultation: normal bowel sounds Skin General skin exam: no rashes or lesions noted and dry skin Neuro General: oriented to person, oriented to place and oriented to time Cranial nerves: Yes Equal, round and reactive pupils present Speech: No Abnormal speech present Gait exam (Neuro): Normal gait present Motor exam (neuro): no tremor noted Extrem Right upper extremity: full ROM Left upper extremity: full ROM Right lower extremity: full ROM; no edema Left lower extremity: full ROM; no edema Psych Mental Status: mental status grossly normal Speech and movement: Normal speech and movement present Affect: normal affect Attitude: cooperative Thought process: Normal thought process present Coding Level of Care Code Est Pt Level 4 (35345) Diagnoses Primary hypertension I10 Hypertension type: primary hypertension Class 1 obesity E66.811 Mixed hyperlipidemia E78.2 Hyperlipidemia type: mixed hyperlipidemia Elevated fasting blood sugar R73.01 Elevated LFTs R79.89 Additional Codes RONAL-7 Assessment Billing - RONAL-7 Assessment Tool: RONAL-7 Assessment 12244 ([id number]) PHQ-9 - 29129 - PHQ-9 Billing: Yes ([id number]) Assessment & Plan Assessment & Plan (1) HTN (hypertension): Code(s): I10 - Essential (primary) hypertension Category: Medical Qualifiers: Hypertension type: primary hypertension Qualified Code(s): I10 - Essential (primary) hypertension Plan: Patient's blood pressure elevated today in office. He is willing to start low- dose lisinopril thus will start 5 mg lisinopril. Advised to monitor blood pressure closely at home. Goal blood pressures to be below 140/90 (2) Class 1 obesity: Code(s): E66.811 - Obesity, class 1 Category: Medical Plan: Patient does understand his BMI is over 30 will work on being more physically active and adapting to better eating habits to reduce his weight. (3) Hyperlipidemia: Code(s): E78.5 - Hyperlipidemia, unspecified Category: Medical Qualifiers: Hyperlipidemia type: mixed hyperlipidemia Qualified Code(s): E78.2 - Mixed hyperlipidemia Plan: Patient continues on lovastatin with good control of his total cholesterol and LDL. Will continue to follow fasting lipid panel with goal LDL to remain below 130. (4) Elevated fasting blood sugar: Code(s): R73.01 - Impaired fasting glucose Category: Medical Plan: Noted elevated fasting blood sugar though improved from previous.. Most recent A1c at 5.6., For now will work on lifestyle and dietary modifications to reduce his fasting blood sugar. (5) Elevated LFTs: Code(s): R79.89 - Other specified abnormal findings of blood chemistry Category: Medical Plan: Elevated LFTs likely due to new supplement patient is using. He reports he is feeling a bit jittery in the new supplement and will stop it. Will recheck liver enzymes before next office visit. Orders: Orders Comprehensive [place]. Panel Fast Today I10 - Essential (primary) hypertension Medications: New lisinopril 5 mg PO DAILY 30 tabs 2RF 30 days I10 - Essential (primary) hypertension
--- OUTSIDE RECORDS SUMMARY | 2024-11-06 18:34 | XMS_ITS | Clinical Summary ---
Author Organization [facility] Address [address] [facility] [address] [place] [id number] Phone Care Team Providers Care Engine Builder Name Role Phone Slade Chaves MD Primary Care Provider Allergies Active Allergy Reactions Criticality Noted Date [...] 02/12/2016 ZOSTER VACCINES (1 of 2) 02/12/2016 INFLUENZA VACCINE (#1) 2024 COVID-19 VACCINE (1 - 2023-2 5 season) 2024 HEPATITIS A VACCINES Aged Out No long [...] topic Medical Devices Not on file Insurance [facility] HMO Care Teams Engine Builder Relationship Specialty Start Date End Date Slade Chaves MD [address] [place] [address] [place] [address] PCP - General Internal Medicine 12/22/23 Additional Source Comments The information contained in this document represents components of the legal health record. It is not the complete legal health record.[facility]
== END 2024-11-06 15:55 | disposition home or self-care (01) ==
LOC: HO.HMCH 15:16
PROVIDERS: PCP Physician Assistant; Visit Provider Physician Assistant
DX: I10 Essential (primary) hypertension (principal); E66.811 Obesity, class 1; Z68.34 Body mass index [BMI] 34.0-34.9, adult; E78.2 Mixed hyperlipidemia; R73.01 Impaired fasting glucose; R79.89 Other specified abnormal findings of blood chemistry

== ENCOUNTER → 2024-11-06 15:15 | Outpatient (BNVA) | payer OTHER, SELFPAY | PROVIDERS: PCP Physician Assistant; Visit Provider Physician Assistant | DX: I10 Essential (primary) hypertension (principal); E66.811 Obesity, class 1; Z68.34 Body mass index [BMI] 34.0-34.9, adult; E78.2 Mixed hyperlipidemia; R73.01 Impaired fasting glucose; R79.89 Other specified abnormal findings of blood chemistry; Z13.31 Encounter for screening for depression; Z13.39 Encounter for screening examination for other mental health and behavioral disorders | CPT/HCPCS: 96127 ==

== ENCOUNTER 2024-11-20 07:32 | Day surgery (SDC) | payer OTHER, SELFPAY ==
--- OUTSIDE RECORDS SUMMARY | 2024-11-11 12:00 | XMS_ITS | Clinical Summary ---
Author Organization [facility] Address [address] [facility] [address] [place] [address] Phone Care Team Providers Care Pickle Water Pump Operator Name Role Phone Slade Chaves MD Primary Care Provider [phone] Allergies Active Allergy Reactions Criticality Noted Date [...] topic Medical Devices Not on file Insurance [facility] PPO [facility] HMO Care Teams Pickle Water Pump Operator Relationship Specialty Start Date End Date Slade Chaves MD [address] [place] [address] [place] [address] PCP - General Internal Medicine 12/22/23 Additional Source Comments The information contained in this document represents components of the legal health record. It is not the complete legal health record.[facility]
--- NOTE | 2024-11-18 11:27 | HO.ANESPROP2 ---
Documented by User: Allyson Flores NP 11/18/24 11:27 HPI - Anesthesia Eval Consult details Narrative: 59 yr old male for Upper Endoscopy and Colonoscopy [facility] Active Problems Active Problems: All Active Problems (Updated 11/06/24 @ 15:43 by Jaziel Chaidez PA-C) Elevated LFTs (Acute) Mild acid reflux (Acute) HTN (hypertension) (Acute) Elevated fasting blood sugar (Acute) Class 1 obesity (Acute) Colon cancer screening (Acute) Allergic rhinitis (Acute) Viral illness (Acute) Obesity (Acute) Physical exam (Acute) Headache (Acute) Sore throat (viral) (Acute) Hyperlipidemia (Acute) Past Medical History Medical History Mild acid reflux Obesity Hyperlipidemia Family History Family History Mother CAD (coronary artery disease) Liver cancer Myocardial infarction Afib Brother No problems noted. Father Mesothelioma of lung Surgical History Surgical History No pertinent past surgical history Social History Social History Housing: House Alcohol intake: current Alcohol intake frequency: a few times a month Patient Tobacco Use Status: Never used Tobacco Tobacco use type: Cigarette e-Cigarette/Vaping Use: Never Used Second Hand Smoke Exposure: No Use of substances other than those prescribed or required for medical reasons: No Advance Directives: No Advance Directives Information Provided: Yes service: No Current occupational status: employed Cognitive needs: No Hearing needs: No Vision needs: Yes Meds Allergies Allergy/AdvReac Type Severity Reaction Status Date / Time amoxicillin (AMOXICILLIN) Allergy Intermediate HIVES/DIARR Verified 11/06/24 15:37 HEA Documented by User: Anette Campos MD 11/20/24 08:36 [facility] Past Medical History Medical History Mild acid reflux Obesity Hyperlipidemia Family History Family History Mother CAD (coronary artery disease) Liver cancer Myocardial infarction Afib Brother No problems noted. Father Mesothelioma of lung Family history of problems with anesthesia: No Surgical History Surgical History No pertinent past surgical history History of Problems with Anesthesia: No Social History Social History Housing: House Alcohol intake: current Alcohol intake frequency: a few times a month Patient Tobacco Use Status: Never used Tobacco Tobacco use type: Cigarette e-Cigarette/Vaping Use: Never Used Second Hand Smoke Exposure: No Use of substances other than those prescribed or required for medical reasons: No Advance Directives: No Advance Directives Information Provided: Yes service: No Current occupational status: employed Cognitive needs: No Hearing needs: No Vision needs: Yes Meds Allergies Allergy/AdvReac Type Severity Reaction Status Date / Time amoxicillin (AMOXICILLIN) Allergy Intermediate HIVES/DIARR Verified 11/06/24 15:37 HEA Assessment and Plan Assessment Anesthesia Assessment: Anesthesia Plan Discussed and Chart Reviewed Final Anesthetic Review Family History of Problems with Anesthesia: No History of Problems with Anesthesia: No NPO: Yes ASA Class: III Final Preanesthetic Review: No Changes in Pt Med Stat, Meds/Allgs Chart Reviewed, Consent Obtained/Reviewed and Anes Risks/Benef Reviewed Patient Risk: Intermediate Procedure Risk: Low Anesthetic Plan Anesthetic Plan: MAC: Disposition: Standard PACU
[2024-11-18 14:29] VITALS: BMI 34.9
[2024-11-20 07:46] VITALS: BMI 33.8
--- NOTE | 2024-11-20 07:47 | MHC.SHP ---
Pre-Procedural Eval Section A - 24 Hr Update-Section A only Date of Service: 11/20/24 Section B - Complete if H&P > 30 days Chief Complaint: screening,gerd, Details of Present Illness: Mild acid reflux Obesity Hyperlipidemia Surgical History No pertinent past surgical history Allergies: Allergies Allergy/AdvReac Type Severity Reaction Status Date / Time amoxicillin (AMOXICILLIN) Allergy Intermediate HIVES/DIARR Verified 11/06/24 15:37 HEA Review of Systems Review of Systems Comment: Ten point ROS negative Exam Exam Comment: Gen appear: No acute distress HEENT: no icterus Chest: No overt resp distress Abd: soft, nontender, nondistended Psych: Stable affect, answering questions appropriately Neuro: A/Ox3 noted to move all extremities spontaneously Ext: no peripheral edema Plan Diagnosis/Plan: Unchanged I have reviewed the history and physical and performed a pertinent physical examination on my patient. No changes have occurred unless specified. Time Spent With Patient Time: Total time managing care of this patient today ____ minutes.
[2024-11-20 07:57] VITALS: BP 144/85; PULSE 99; RESP 16; TEMP 36.8; O2SAT 97
[2024-11-20] MEDS: Lactated Ringers 1,000 ML 100 ML IVCONT (07:57)
[2024-11-20 09:21] VITALS: BP 106/80; PULSE 94; RESP 16; TEMP 36.2; O2SAT 94
--- NOTE | 2024-11-20 09:27 | P.OPN-COLO_ITS ---
Colonoscopy Operative Note Operative Note Date of Service: 11/20/24 Narrative: Procedure: Upper endoscopy and colonoscopy Indication: GERD, dysphagia, Hx of polyps Endoscopist: Leanne Ortega MD Anesthesia Provider: Monik Carvalho CRNA Anesthesia type: MAC Instrument: [id number]-[id number] and [id number]-[id number] EGD Procedure:?? The procedure, indications, preparation and potential complications were reviewed with the patient, who indicated understanding and gave written informed consent to proceed. The endoscope was introduced through the mouth, and advanced to the 2nd part of the duodenum. The mucosa was carefully examined on slow withdrawal of the endoscope. The patient tolerated the procedure well. There were no immediate complications.? EGD Findings:? * Esophagus:? Normal esophageal mucosa was noted. The Z-line was at 43 cm and displaced by hiatal hernia with the diaphragmatic pinch at 46 cm.. Cold forceps biopsies were taken from GE junction for histology. * Stomach:? Erythema in the gastric body and antrum. Retroflexion was performed in the cardia that showed Hill grade III hiatal hernia. Random cold forceps biopsies were taken from the stomach. * Duodenum:? Normal duodenal mucosa. Additional intervention: Soft tipped Savary wire was introduced through the biopsy channel of the gastroscope and advanced to the antrum. ?The gastroscope was then backed out. ?Savary Shilpa bougie was advanced over the guidewire and the esophagus was dilated to 18 mm without any resistance felt. ?On relook, no heme or tear was noted. ? Colonoscopy Procedure:? The patient was then turned for the colonoscopy. A digital rectal exam was performed which was abnormal for external hemorrhoids.? A distal attachment cap was affixed to the tip of the scope and the colonoscope was then inserted through the anus and advanced through the colon and advanced to the cecum at 85 cm and terminal ileum.? Appendiceal orifice and ileocecal valve were identified. Mucosa was carefully examined under high definition white light as the instrument was slowly withdrawn in a retrograde panoramic fashion. Retroflexion was performed in rectum. The procedure was not difficult. The quality of the prep was BBPS: 2+3+2 = adequate Withdrawal time 9 minutes Limitations: No limitations Findings: Mucosa: Normal colon and terminal ileum mucosa. Protruding lesions: * Medium internal hemorrhoids without stigmata of recent bleeding. Impression: 1. Normal esophagus (biopsy, dilation) 2. Hiatal hernia 3. Gastritis (biopsy) 4. Normal duodenum 5. Normal colon and terminal ileum mucosa 6. Internal and external hemorrhoids Recommendations:?? * An empiric dilation was performed due to patient's report of occasional pill dysphagia, but no overt stricture was noted. * Recommend barium swallow for further evaluation of hiatal hernia * Follow-up path results * Avoid NSAIDs * Start omeprazole 20 once daily to be taken for 8-12 weeks * H Pylori treatment if biopsies + * Repeat colonoscopy for CRC screening in 10 years.
[2024-11-20 09:36] VITALS: BP 116/77; PULSE 89; RESP 18; TEMP 36.6; O2SAT 97
== END 2024-11-20 10:29 | disposition home or self-care (01) ==
PROVIDERS: PCP Physician Assistant; Visit Provider Internal Medicine
PROC: (CPT 45378; principal; 2024-11-20 09:10)
DX: Z12.11 Encounter for screening for malignant neoplasm of colon (principal); Z86.0101 Personal history of adenomatous and serrated colon polyps; K64.8 Other hemorrhoids; K64.4 Residual hemorrhoidal skin tags; K21.9 Gastro-esophageal reflux disease without esophagitis; R13.10 Dysphagia, unspecified; K29.50 Unspecified chronic gastritis without bleeding; B96.81 Helicobacter pylori [H. pylori] as the cause of diseases classified elsewhere; K44.9 Diaphragmatic hernia without obstruction or gangrene; E78.5 Hyperlipidemia, unspecified; E66.9 Obesity, unspecified; Z68.34 Body mass index [BMI] 34.0-34.9, adult; Z79.899 Other long term (current) drug therapy; Z88.1 Allergy status to other antibiotic agents
CPT/HCPCS: 45378; 43248; 43239; 88305; 88313; 88342; C1769; J2003; J2704

== ENCOUNTER → 2024-11-20 07:32 | Outpatient (BNV) | payer OTHER, SELFPAY | PROVIDERS: PCP Physician Assistant; Visit Provider Internal Medicine | DX: Z12.11 Encounter for screening for malignant neoplasm of colon (principal); K64.8 Other hemorrhoids; R13.10 Dysphagia, unspecified; K29.70 Gastritis, unspecified, without bleeding | CPT/HCPCS: 43239; 43248; 45378 ==

== ENCOUNTER 2024-12-09 08:37 | Outpatient (AMB) | payer OTHER, SELFPAY ==
[2024-12-09 08:40] VITALS: BP 137/76; PULSE 96; O2SAT 98; BMI 33.9
--- NOTE | 2024-12-09 08:40 | A.OFFVIS_ITS ---
Vital Signs 12/09/24 08:40 Height 5 ft 11 in Weight 243 lb BMI 33.9 BP 137/76 Blood Pressure Location Lt brachial Position Sitting Pulse 96 Pulse Oximetry (%) 98 Oxygen Delivery Method Room Air Intake Visit Reasons: s/p colo,egd Jordan Intake Note: Patient follow up for EGD/Colonoscopy results. Patient denies any GI issues for today visit Metal Or Wood Blocker Required: No Accompanied by: Self / Same As Patient Allergies amoxicillin (AMOXICILLIN) Allergy (Intermediate, Verified 12/09/24 08:39) HIVES/DIARRHEA Medication List - Last Reconciled 12/09/24 by Mariann Mike CNP blood pressure monitor As directed lisinopril 5 mg PO DAILY 30 days lovastatin 40 mg PO DAILY 90 days omeprazole 20 mg PO DAILY sucralfate 1 g PO BID HPI HPI s/p colo,egd Jordan: Details: Patient is a 59-year-old male with PMH of obesity, hyperlipidemia. F/u for review of EGD, colonoscopy, H. pylori therapy completion, and interval assessment of GI symptoms. Pt reports reflux symptoms markedly improved and currently resolved. Tolerated quadruple Rx for H. pylori (finishes today), though experienced significant GI side effects ~days 2-3, prompting missed work. Since switching med timing with meals and adding probiotic/yogurt, GI tolerance improved. Denies ongoing abdominal pain, N/V, hematochezia, or melena?notes stools darkened as expected. Continues regular bowel movements. Finished prescribed probiotic and plans to resume multivitamin. Reports no current issues with hemorrhoids. Discontinued ?Super Beets? supplement in October after adverse effect (jitteriness, tachycardia); alcohol use weekends, denies tobacco. No new symptoms. No hospitalizations, UC/ED visits, or fevers. [facility] Medical History (Updated 12/09/24 @ 09:26 by Mariann Mike CNP) Hemorrhoids Positive H. pylori test Mild acid reflux Obesity Hyperlipidemia Surgical History History of esophagogastroduodenoscopy (EGD) Hx of colonoscopy No pertinent past surgical history Family History Mother CAD (coronary artery disease) Liver cancer Myocardial infarction Afib Brother No problems noted. Father Mesothelioma of lung Social History Housing: House Alcohol intake: current Alcohol intake frequency: a few times a month Patient Tobacco Use Status: Never used Tobacco Tobacco use type: Cigarette e-Cigarette/Vaping Use: Never Used Second Hand Smoke Exposure: No service: No Current occupational status: employed Cognitive needs: No Hearing needs: No Vision needs: Yes Review of Systems Const Reports as per HPI ENT Reports as per HPI Card Reports as per HPI Resp Reports as per HPI GI Reports as per HPI Reports as per HPI Physical Exam Vital Signs: Last Vital Signs Pulse 96 12/09/24 08:40 BP 137/76 12/09/24 08:40 Pulse Ox 98 12/09/24 08:40 Oxygen Delivery Method Room Air 12/09/24 08:40 BMI result Body Mass Index 33.9 Const General: healthy appearing, no acute distress and well developed Nutritional Appearance: average body habitus Orientation/consciousness: patient oriented x3 HEENT Head: Yes normal to inspection, Yes normocephalic and Yes atraumatic Face and sinus: Yes normal facial exam Eyes General: appearance normal, both eyes and all related structures Neck Neck: Yes normal visual inspection Resp Effort & Inspection: normal respiratory effort, able to speak in complete sentences, no tracheal deviation and symmetric chest movement Cardio Jugular venous distension: no JVD GI Inspection: Yes obesity Neuro General: patient oriented x3 Gait exam (Neuro): Normal gait present Psych Appearance: grossly normal Mental Status: mental status grossly normal Speech and movement: Normal speech and movement present Affect: normal affect Attitude: cooperative Thought process: Normal thought process present Thought content: Normal thought content present Insight: Good insight present (Psych) Judgement: Good judgement present (Psych) Assessment & Plan Assessment & Plan (1) Mild acid reflux: Comment: 11/20/24 Upper endoscopy -Normal esophagus (biopsy, dilation), Hiatal hernia, Gastritis , Normal duodenum ,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 Repeat 3 years (2027). Code(s): K21.9 - Gastro-esophageal reflux disease without esophagitis Category: Medical Plan: Resolved; symptom-free after therapy and diet modifications. -Stopped PPI temporarily for eradication testing -sucralfate 1G BID during bridge period -continue non-pharmacologic management. Lifestyle Recommendations: - Continue to avoid late-night eating, minimize EtOH/caffeine, maintain healthy BMI. Follow-Up Plan: - Monitor for symptom recurrence; long-term PPI may be needed depending on future risk/sx. (2) Positive H. pylori test: Code(s): A04.8 - Other specified bacterial intestinal infections Category: Medical Plan: S/p full course quad therapy, minimal side effects after initial adjustment; no dyspepsia or abdominal pain. Hold omeprazole and continue sucralfate prn until eradication testing (to avoid false-negative result). Additional testing: - H. pylori eradication breath testing scheduled 4 wks post-therapy (01/05/25). Medications: - Hold PPI (omeprazole) until eradication testing; restart after test if indicated for metaplasia risk per EGD findings. - Continue sucralfate as needed; cruise counselor on dosing intervals (2 hrs from other meds, 30 min apart from antacids). Lifestyle Recommendations: - Reinforce healthy, balanced, low-fat diet, increased fiber, adequate hydration, avoid triggers for gastritis/reflux; recommend natural probiotics (yogurt, fermented foods). Referrals / Coordination of Care: - Will need repeat EGD in 3 yrs to surveillance gastric metaplasia. Follow-Up Plan: - F/u post-eradication test results with GI; resume omeprazole based on findings/ongoing sx. (3) Elevated LFTs: Code(s): R79.89 - Other specified abnormal findings of blood chemistry Category: Medical Plan: Labs abnormal; alcohol use weekends, no recent hepatotoxic meds except short- term abx. Rationale: Pt has NAFLD risk (pre-DM, dyslipidemia, BMI, EtOH), but must r/o other etiologies (viral, autoimmune, supplement effect); supplement discontinued. Additional testing: - Repeat LFTs, hepatitis panel, autoimmune hepatitis labs ordered?12-hr fasting specimen. - Consider hepatic US if no improvement. Lifestyle Recommendations: - Advise weight loss as appropriate, reduce/avoid EtOH, regular exercise, heart- healthy diet. Referrals / Coordination of Care: - None at present Follow-Up Plan: - F/u GI ~3?4 wks after labs; earlier if new sx (jaundice, RUQ pain, malaise) arise. (4) Hemorrhoids: Comment: 11/20/24 colonoscopy complete with adequate prep -Normal colon and terminal ileum mucosa, Internal and external hemorrhoids. Recommendations for repeat in 10 years. Code(s): K64.9 - Unspecified hemorrhoids Category: Medical Qualifiers: Hemorrhoid type: unspecified Qualified Code(s): K64.9 - Unspecified hemorrhoids Plan: Noted on 10/2024 [place]. Asymptomatic, no bleeding, discomfort. Rationale: Prevention; maintain soft stools, avoid exacerbating factors. Lifestyle Recommendations: - Continue high-fiber diet, hydrated, minimize straining. Follow-Up Plan: - Routine; instructions for return if bleeding or flare occur. Plan Follow-up 4 weeks or sooner as needed Time: I spent a total of 25 minutes on the date of encounter which includes: Preparing to see the patient (reviewed previous documentation, test results and medical history) Performing a medically appropriate exam and/or evaluation Ordering medications, tests, and procedures Documenting clinical information in the health record Orders: Orders Mitochondrial Antibody Today - Other specified abnormal findings of blood chemistry Transglutaminase IgA Today - Other specified abnormal findings of blood chemistry Lipase Today - Other specified abnormal findings of blood chemistry Hepatitis A,B,C Profile Today - Other specified abnormal findings of blood chemistry H Pylori Breath Test Today A04.8 - Other specified bacterial intestinal infections Liver Panel Today - Other specified abnormal findings of blood chemistry Smooth Muscle Antibody Today - Other specified abnormal findings of blood chemistry Prothrombin Time INR Today - Other specified abnormal findings of blood chemistry Ferritin Today - Other specified abnormal findings of blood chemistry Coding Level of Care Code Established Pt Est Pt Level 3 (61931) Patient Type Established Diagnoses Mild acid reflux K21.9 Positive H. pylori test A04.8 Elevated LFTs Hemorrhoids, unspecified hemorrhoid type K64.9 Hemorrhoid type: unspecified
--- OUTSIDE RECORDS SUMMARY | 2024-12-09 08:59 | XMS_ITS | Clinical Summary ---
Author Organization [facility] Address [address] [facility] [address] [place] [address] Phone Care Team Providers Care Hospital Technician Name Role Phone Slade Chaves MD Primary Care Provider [phone] Allergies Active Allergy Reactions Criticality Noted Date [...] VACCINE (#1) 2024 COVID-19 VACCINE (1 - 2024-2 6 season) 2024 RSV VACCINE (1 - 1-dose 75+ series) 2041 HEPATITIS A VACCINES Aged Out No long [...] Devices Not on file Insurance [facility] Member Subscriber Plan / Payer (Ef fective 2023-Present) Name:Loki Faustin Relation to Subscriber:Self Name:Loki Faustin Payer ID:Not on file Type:PPO Address: [address] [facility] Member Subscriber Plan / Payer (Ef fective 2023-Present) Name:Loki Faustin Relation to Subscriber:Self Name:Loki Faustin Payer ID:Not on file Type:PPO Address: [address] [facility] Member Subscriber Plan / Payer (Ef fective 2023-Present) Name:Loki Faustin Relation to Subscriber:Self Name:Loki Faustin Payer ID:Not on file Type:PPO Address: [address] [facility] Member Subscriber Plan / Payer (Ef fective 2023-Present) Name:Loki Faustin Relation to Subscriber:Self Name:Loki Faustin Payer ID:Not on file Type:PPO Address: [address] [facility] Member Subscriber Plan / Payer (Ef fective 2023-Present) Name:Loki Faustin Relation to Subscriber:Self Name:FaustinLoki Payer ID:Not on file Type:PPO Address: [place] [address] Member Subscriber Plan / Payer (Ef fective 2013-Present) Name:FaustinLoki Relation to Subscriber:Self Name:Loki Faustin Payer ID:Not on file Type:HMO Address: [place] [id number] Care Teams Hospital Technician Relationship Specialty Start Date End Date lSade Chaves MD [address] [place] [address] [place] [address] PCP - General Internal Medicine 12/22/23 Additional Source Comments The information contained in this document represents components of the legal health record. It is not the complete legal health record.[facility]
== END 2024-12-09 09:12 | disposition home or self-care (01) ==
LOC: HO.HGI 08:38
PROVIDERS: PCP Physician Assistant; Visit Provider Nurse Practitioner Family
DX: K21.9 Gastro-esophageal reflux disease without esophagitis (principal); A04.8 Other specified bacterial intestinal infections; R79.89 Other specified abnormal findings of blood chemistry; K64.9 Unspecified hemorrhoids
CPT/HCPCS: 99213

== ENCOUNTER 2024-12-12 09:08 | Outpatient (REF) | payer OTHER, SELFPAY ==
[2024-12-12 10:13] LABS: INTERNATIONAL NORM RATIO 1.0 (0.9-1.1); Prothrombin Time 11.8 SEC (10.9-12.4)
[2024-12-12 13:59] LABS: Alanine Aminotransferase 30 U/L (0-40); Albumin Level 4.5 g/dL (3.5-5.0); Alkaline Phosphatase 85 U/L (39-117); Aspartate Amino Transferase 24 U/L (5-37); Lipase 24 U/L (8-78); Total Protein 6.9 g/dL (6.5-8.0)
[2024-12-12 14:24] LABS: Ferritin 168 ng/mL (20-250)
[2024-12-13 09:15] LABS: HBS Num1 0.30 mIU/mL (0-7.99); HBc Num1 0.04 S/CO (0.00-0.79); HBsAGNum1 0.57 S/CO (0.00-0.99); Hepatitis A Antibody IgM 0.21 Index (0-0.79); Hepatitis B Surface Antigen Negative (Negative); ~HepC Num1 0.06 S/CO (0.00-0.79); ~Hepatitis A Antibody IgM Nonreactive (Nonreactive); ~Hepatitis B Surface Antibody NONREACTIVE (Nonreactive); ~Hepatitis C Antibody Nonreactive (Nonreactive)
== END 2024-12-12 09:09 | disposition home or self-care (01) ==
LOC: HO.LAB 09:08
PROVIDERS: PCP Physician Assistant; Visit Provider Nurse Practitioner Family
DX: R79.89 Other specified abnormal findings of blood chemistry (principal); Z01.84 Encounter for antibody response examination
CPT/HCPCS: 36415; 80076; 82728; 83690; 85610; 86015; 86364; 86381; 86704; 86706; 86709; 86803; 87340

== ENCOUNTER 2025-01-05 09:40 | Outpatient (REF) | payer OTHER, SELFPAY ==
--- OUTSIDE RECORDS SUMMARY | 2025-01-06 11:48 | XMS_ITS | Clinical Summary ---
Author Organization [facility] Address [address] [facility] [address] [place] [address] Phone Care Team Providers Care Power Chisel Operator Name Role Phone Slade Chaves MD Primary Care Provider [phone] Allergies Active Allergy Reactions Criticality Noted Date [...] on patient's age to complete this topic IPV VACCINES Aged Out No longer eligi ble based on patient's age to complete this topic MENINGOCOCCAL VACCINES (ACWY) Aged Out No longer eligible based on patient's age to complete this topic MENINGOCOCCAL VACCINES (B) Aged Out N o longer eligible based on patient's age to complete this topic Medical Devices Not on file Insurance [facility] Member Subscriber Plan / Payer (Ef fective 2023-Present) Name:Loki Faustin Relation to Subscriber:Self Name:Roxie Loki Payer ID:Not on file Type:PPO Address: [address] [facility] Member Subscriber Plan / Payer (Ef fective 2023-Present) Name:Loki Faustin Relation to Subscriber:Self Name:Loki Faustin Payer ID:Not on file Type:PPO Address: [address] [facility] Member Subscriber Plan / Payer (Ef fective 2023-Present) Name:Loki Faustin Relation to Subscriber:Self Name:Roxie Loki Payer ID:Not on file Type:PPO Address: [address] [facility] Member Subscriber Plan / Payer (Ef fective 2023-Present) Name:Loki Faustin Relation to Subscriber:Self Name:Loki Faustin Payer ID:Not on file Type:PPO Address: [address] [facility] Member Subscriber Plan / Payer (Ef fective 2023-Present) Name:Loki Faustin Relation to Subscriber:Self Name:Loki Faustin Payer ID:Not on file Type:PPO Address: [place] [id number] [facility] Member Subscriber Plan / Payer (Ef fective 2023-Present) Name:Loki Faustin Relation to Subscriber:Self Name:Loki Faustin Payer ID:Not on file Type:PPO Address: [place] [id number] [facility] Care Teams Power Chisel Operator Relationship Specialty Start Date End Date Slade Chaves MD [address] [place] [address] [place] [address] PCP - General Internal Medicine 12/22/23 Additional Source Comments The information contained in this document represents components of the legal health record. It is not the complete legal health record.[facility]
== END 2025-01-05 09:41 | disposition home or self-care (01) ==
LOC: HO.LNP 09:40
PROVIDERS: PCP Physician Assistant; Visit Provider Nurse Practitioner Family
DX: A04.8 Other specified bacterial intestinal infections (principal)
CPT/HCPCS: 83013; 99211

== ENCOUNTER 2025-01-05 09:40 | Outpatient (AMB) | payer OTHER, SELFPAY ==
--- NOTE | 2025-01-05 10:14 | AM.OFFVISNUR ---
Intake Visit Reasons: H pylori breath test Intake Note: Pt presents for H Pylori BT; retesting after completion of abx course. Protocols reviewed with pt and confirmed to be followed. Pt advised of instructions for the test and began testing at 1015. Testing was concluded at 1030. No questions or additional concerns per pt at the end of testing. Advised pt that we will contact them with results when they are obtained. Veterinary Manager Required: No Accompanied by: Self / Same As Patient Allergies amoxicillin (AMOXICILLIN) Allergy (Intermediate, Verified 12/09/24 08:39) HIVES/DIARRHEA Assessment & Plan Assessment & Plan (1) Positive H. pylori test: Code(s): A04.8 - Other specified bacterial intestinal infections Category: Medical (2) Mild acid reflux: Comment: 11/20/24 Upper endoscopy -Normal esophagus (biopsy, dilation), Hiatal hernia, Gastritis , Normal duodenum ,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 Repeat 3 years (2027). Code(s): K21.9 - Gastro-esophageal reflux disease without esophagitis Category: Medical Coding Level of Care Code Established Pt Procedure Only Patient Type Established Diagnoses Positive H. pylori test A04.8 Mild acid reflux K21.9
--- OUTSIDE RECORDS SUMMARY | 2025-01-05 10:58 | XMS_ITS | Clinical Summary ---
Author Organization [facility] Address [address] [facility] [address] [place] [address] Phone Care Team Providers Care President And Cmo Name Role Phone Slade Chaves MD Primary Care Provider [phone] Allergies Active Allergy Reactions Criticality Noted Date [...] Devices Not on file Insurance [facility] Member Subscriber Plan / Payer (Ef fective 2023-Present) Name:Loki Faustin Relation to Subscriber:Self Name:Loki Faustin Payer ID:Not on file Type:PPO Address: [address] [facility] Member Subscriber Plan / Payer (Ef fective 2023-Present) Name:Loki Faustin Relation to Subscriber:Self Name:Loki Faustin Payer ID:Not on file Type:PPO Address: [address] [facility] Member Subscriber Plan / Payer (Ef fective 2023-Present) Name:Loki Faustin Relation to Subscriber:Self Name:Loki Faustin Payer ID:Not on file Type:PPO Address: [address] [facility] Member Subscriber Plan / Payer (Ef fective 2023-Present) Name:Loki Faustin Relation to Subscriber:Self Name:Loki Faustin Payer ID:Not on file Type:PPO Address: [address] [facility] Member Subscriber Plan / Payer (Ef fective 2023-Present) Name:Loki Faustin Relation to Subscriber:Self Name:FaustinLoki Payer ID:Not on file Type:PPO Address: [place] [address] Member Subscriber Plan / Payer (Ef fective 2013-Present) Name:FaustinLoki Relation to Subscriber:Self Name:Loki Faustin Payer ID:Not on file Type:HMO Address: [place] [id number] Care Teams President And Cmo Relationship Specialty Start Date End Date Slade Chaves MD [address] [place] [address] [place] [address] PCP - General Internal Medicine 12/22/23 Additional Source Comments The information contained in this document represents components of the legal health record. It is not the complete legal health record.[facility]
== END 2025-01-05 10:25 | disposition home or self-care (01) ==
LOC: HO.HGI 09:41
PROVIDERS: PCP Physician Assistant; Visit Provider Nurse Practitioner Family
DX: A04.8 Other specified bacterial intestinal infections (principal); K21.9 Gastro-esophageal reflux disease without esophagitis

== ENCOUNTER 2025-01-06 14:42 | Outpatient (AMB) | payer OTHER, SELFPAY ==
--- NOTE | 2025-01-06 14:53 | MHC.OFFVIS ---
Vital Signs 01/06/25 15:02 Height 5 ft 11 in Weight 245 lb BMI 34.2 BP 138/74 Blood Pressure Location Lt brachial Position Sitting Pulse 98 Intake Visit Reasons: 4w Intake Note: Patient 4 week follow up for Elevated LFTs and lab results. Patient denies any GI issues. Choke Setter Required: No Accompanied by: Self / Same As Patient Allergies amoxicillin (AMOXICILLIN) Allergy (Intermediate, Verified 01/06/25 14:53) HIVES/DIARRHEA HPI HPI 4w: Details: Patient is a 59-year-old male with PMH of obesity, hyperlipidemia. FU post H. pylori therapy; review of recent labs and GI symptom status. Since last encounter, pt completed full course of H. pylori triple therapy (antibiotics and PPI) end of November, and nearly finished sucralfate bridge as directed. Pt discontinued omeprazole briefly for retesting. No current GI complaints; heartburn resolved and digestion normalized. 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 Marked reduction in alcohol use since completing Rx?recent intake limited to 4 drinks scattered over a weekend, formerly 8?15 per sitting. Pt reported cessation of spicy foods, increased water/vegetable intake. No interim hospitalizations, urgent care visits, or flares. Fasting labs drawn by PCP within past 2 weeks; awaiting PCP FU. [facility] Medical History (Updated 12/09/24 @ 09:26 by Mariann Mike CNP) Hemorrhoids Positive H. pylori test Mild acid reflux Obesity Hyperlipidemia Surgical History History of esophagogastroduodenoscopy (EGD) Hx of colonoscopy No pertinent past surgical history Family History Mother CAD (coronary artery disease) Liver cancer Myocardial infarction Afib Brother No problems noted. Father Mesothelioma of lung Social History Housing: House Alcohol intake: current Alcohol intake frequency: a few times a month Patient Tobacco Use Status: Never used Tobacco Tobacco use type: Cigarette e-Cigarette/Vaping Use: Never Used Second Hand Smoke Exposure: No service: No Current occupational status: employed Cognitive needs: No Hearing needs: No Vision needs: Yes Review of Systems Const Reports as per HPI ENT Reports as per HPI Card Reports as per HPI Resp Reports as per HPI GI Reports as per HPI Reports as per HPI Physical Exam Vital Signs: Last Vital Signs Pulse 98 01/06/25 15:02 BP 138/74 01/06/25 15:02 BMI result Body Mass Index 34.2 Const General: healthy appearing, no acute distress and well developed Nutritional Appearance: average body habitus Orientation/consciousness: patient oriented x3 HEENT Head: Yes normal to inspection, Yes normocephalic and Yes atraumatic Face and sinus: Yes normal facial exam Eyes General: appearance normal, both eyes and all related structures Neck Neck: Yes normal visual inspection Resp Effort & Inspection: normal respiratory effort, able to speak in complete sentences, no tracheal deviation and symmetric chest movement Auscultation: clear to auscultation bilaterally Cardio Jugular venous distension: no JVD Rate: regular rate Rhythm: regular rhythm Heart sounds: S1 normal heart sound present, S2 normal heart sound present, no gallops and no murmurs GI Inspection: Yes normal to inspection and No distended Palpation (GI): Soft to palpation, not firm, nontender and No hepatosplenomegaly present Auscultation: normal bowel sounds Neuro General: patient oriented x3 Gait exam (Neuro): Normal gait present Psych Appearance: grossly normal Mental Status: mental status grossly normal Speech and movement: Normal speech and movement present Affect: normal affect Attitude: cooperative Thought process: Normal thought process present Thought content: Normal thought content present Insight: Good insight present (Psych) Judgement: Good judgement present (Psych) Assessment & Plan Assessment & Plan (1) Positive H. pylori test: Code(s): A04.8 - Other specified bacterial intestinal infections Category: Medical Plan: Significant improvement; Completion of Rx therapy and negative UBT; ongoing mild inflammation possible given hx of gastritis on EGD Additional Testing: None needed now; repeat EGD in 3 yrs due to metaplasia Medications: - Restart/continue omeprazole 20mg BID x4 wks (pt has supply)?further reduce gastric inflammation; discontinue after total 8 wks unless sx recur - Sucralfate PRN?use if new reflux/heartburn, not needed routine Lifestyle Recommendations: - Continue EtOH reduction (<= 2drinks/day; no more than recommended limits for GI/liver protection) - Maintain high intake of water/vegetables; avoid acidic, spicy, fried foods - Patient education re: triggers, H. pylori prevention, dietary choices reinforced Referrals / Coordination of Care: None Follow-Up Plan: 6 months FU (June 2025) or prn symptoms; repeat EGD due 2027 (2) Elevated LFTs: Code(s): R79.89 - Other specified abnormal findings of blood chemistry Category: Medical Plan: LFTs normalized after fasting, lifestyle modification; no evidence of autoimmune, celiac, hepatitis. EtOH reduction and dietary modifications proven effective; BP managed by PCP Additional Testing: Monitor LFTs with PCP; FU as needed, consider liver US if enzymes rise again Medications: Continue antihypertensive (per PCP); no new Rx for liver Lifestyle Recommendations: Continue reducing alcohol; focus on weight, exercise, fiber, and low glycemic foods Referrals / Coordination of Care: PCP for HTN, LFTs, and possible Hep B vaccine Follow-Up Plan: Monitor labs and symptoms, reinforce abstinence/minimal drinking Plan Follow-up 6 months or sooner as needed Time: I spent a total of 22 minutes on the date of encounter which includes: Preparing to see the patient (reviewed previous documentation, test results and medical history) Performing a medically appropriate exam and/or evaluation Ordering medications, tests, and procedures Documenting clinical information in the health record Medications: Discontinued sucralfate Take on tablet two times daily as needed. Take an empty stomach. Avoid antacids within 30 minutes. Discontinued Reason: No Longer Medically Relevant 1 g PO BID 90 tabs 0RF Coding Level of Care Code Established Pt Est Pt Level 3 (20892) Patient Type Established Diagnoses Positive H. pylori test A04.8 Elevated LFTs R79.89
[2025-01-06 15:02] VITALS: BP 138/74; PULSE 98; BMI 34.2
== END 2025-01-06 15:26 | disposition home or self-care (01) ==
LOC: HO.HGI 14:43
PROVIDERS: PCP Physician Assistant; Visit Provider Nurse Practitioner Family
DX: A04.8 Other specified bacterial intestinal infections (principal); R79.89 Other specified abnormal findings of blood chemistry
CPT/HCPCS: 99213

== ENCOUNTER 2025-01-10 07:49 | Outpatient (REF) | payer OTHER, SELFPAY ==
--- OUTSIDE RECORDS SUMMARY | 2025-01-10 07:52 | XMS_ITS | Clinical Summary ---
Author Organization [facility] Address [address] [place] [id number] Phone Care Team Providers Care Channel Sales Manager Name Role Phone Slade Chaves MD Primary Care Provider [phone] Allergies Active Allergy Reactions Criticality Noted Date [...] Medical Devices Not on file Insurance [facility] Member Subscriber Plan / Payer (Ef fective 2023-Present) Name:Loki Faustin Relation to Subscriber:Self Name:Roxie Loki Payer ID:Not on file Type:PPO Address: [address] [facility] Member Subscriber Plan / Payer (Ef fective 2023-Present) Name:Loki Faustin Relation to Subscriber:Self Name:Loki Faustin Payer ID:Not on file Type:PPO Address: [address] [facility] Member Subscriber Plan / Payer (Ef fective 2023-Present) Name:Loki Faustin Relation to Subscriber:Self Name:Roxie Loki Payer ID:Not on file Type:PPO Address: [address] [facility] Member Subscriber Plan / Payer (Ef fective 2023-Present) Name:Loki Faustin Relation to Subscriber:Self Name:Loki Faustin Payer ID:Not on file Type:PPO Address: [address] [facility] Member Subscriber Plan / Payer (Ef fective 2023-Present) Name:Loki Faustin Relation to Subscriber:Self Name:Loki Faustin Payer ID:Not on file Type:PPO Address: [place] [id number] [facility] Member Subscriber Plan / Payer (Ef fective 2023-Present) Name:Loki Faustin Relation to Subscriber:Self Name:Loki Faustin Payer ID:Not on file Type:PPO Address: [place] [id number] [facility] Care Teams Channel Sales Manager Relationship Specialty Start Date End Date Slade Chaves MD [address] [place] [address] [place] [address] PCP - General Internal Medicine 12/22/23 Additional Source Comments The information contained in this document represents components of the legal health record. It is not the complete legal health record.[facility]
[2025-01-10 08:45] LABS: Alanine Aminotransferase 35 U/L (0-40); Albumin Level 4.6 g/dL (3.5-5.0); Alkaline Phosphatase 89 U/L (39-117); Anion Gap 14 (12-20); Aspartate Amino Transferase 30 U/L (5-37); Blood Urea Nitrogen 18 mg/dL (9-16); Calcium 9.5 mg/dL (8.4-10.2); Carbon Dioxide 23 mmol/L (22-29); Chloride 108 mmol/L (96-108); Estimated Glomerular Filt Rate > 60; Potassium 4.5 mmol/L (3.3-5.1); Sodium 140 mmol/L (135-145); Total Protein 7.0 g/dL (6.5-8.0)
[2025-01-10 09:15] LABS: Microalbum/Creatinine Ratio Ur 21.8 ug/mg cr (<30)
== END 2025-01-10 07:50 | disposition home or self-care (01) ==
LOC: HO.LAB 07:49
PROVIDERS: PCP Physician Assistant; Visit Provider Physician Assistant
DX: I10 Essential (primary) hypertension (principal)
CPT/HCPCS: 36415; 80053; 82043; 82570

== ENCOUNTER 2025-01-12 15:15 | Outpatient (AMB) | payer OTHER, SELFPAY ==
[2025-01-12 15:54] VITALS: BP 110/80; PULSE 100; TEMP 36.3; O2SAT 96; BMI 33.6
--- NOTE | 2025-01-12 15:54 | A.OFFPC_ITS ---
Vital Signs 01/12/25 15:54 Height 6 ft Weight 247 lb 8 oz BMI 33.6 BP 110/80 Blood Pressure Location Lt brachial Position Sitting Pulse 100 Pulse Source Pulse Oximeter Temp 97.3 F Temp Source Temporal Artery Scan Pulse Oximetry (%) 96 Oxygen Delivery Method Room Air Intake Visit Reasons: 8 week f/u Proposal Specialist Required: No Accompanied by: Self / Same As Patient Allergies amoxicillin (AMOXICILLIN) Allergy (Intermediate, Verified 01/12/25 16:06) HIVES/DIARRHEA Medication List - Last Reconciled 01/12/25 by Jaziel Chaidez PA-C blood pressure monitor As directed lisinopril 5 mg PO DAILY lovastatin 40 mg PO DAILY 90 days omeprazole 20 mg PO DAILY Tobacco use date assessed: 11/06/24 Dental Screening Dental Screen Date: 11/06/24 Did you have a dental visit in the last 12 months?: Yes Did you have a dental problem in the last 6 months where you did not have access to dental care?: No Was dental information given to patient?: Patient has dentist HPI 8 week f/u HPI Details Patient is a 59-year-old male here today for follow-up visit. Patient has a past medical history significant for obesity, hyperlipidemia. Hypertension: Blood pressure improved today in office. He continues on low- dose lisinopril 5 mg which has significantly helped his blood pressure. He reports he feels much better.. .. Hyperlipidemia: Most recent lipid panel showing decent control of his total cholesterol and LDL. Still has borderline high triglycerides. He continues on lovastatin daily with decent affect on his lipid panel. .. History of H pylori: Followed by gastroenterology and has been treated with antibiotics for his H pylori. He reports his GERD symptoms has been much better. He has been making dietary changes as well which has helped his GERD. .. Elevated fasting blood sugar: FBS - 112 improved . Most recent A1c of 5.6. Will continue working on lifestyle and dietary modifications. Class 1 Obesity: Patient does understand his BMI is over 30 will work on being more physically active and adapting to better eating habits to reduce his weight. Laboratory Tests 10/31/24 01/10/25 06:31 07:58 RBC 4.76 Fasting Glucose 112 H 111 H AST 50 H 30 PFSH Medical History Hemorrhoids Positive H. pylori test Mild acid reflux Obesity Hyperlipidemia Surgical History History of esophagogastroduodenoscopy (EGD) Hx of colonoscopy No pertinent past surgical history Family History Mother CAD (coronary artery disease) Liver cancer Myocardial infarction Afib Brother No problems noted. Father Mesothelioma of lung Social History Housing: House Alcohol intake: current Alcohol intake frequency: a few times a month Patient Tobacco Use Status: Never used Tobacco Tobacco use type: Cigarette e-Cigarette/Vaping Use: Never Used Second Hand Smoke Exposure: No service: No Current occupational status: employed Cognitive needs: No Hearing needs: No Vision needs: Yes Questionnaire PHQ-9 Over the last 2 weeks, how often have you been bothered by any of the following problems? 1. Little interest or pleasure in doing things: not at all 2. Feeling down, depressed, or hopeless: not at all 3. Trouble falling or staying asleep, or sleeping too much: not at all 4. Feeling tired or having little energy: not at all 5. Poor appetite or overeating: not at all 6. Feeling bad about yourself - or that you are a failure or have let yourself or your family down: not at all 7. Trouble concentrating on things, such as reading the newspaper or watching television: not at all 8. Moving or speaking so slowly that other people could have noticed. Or the opposite - being so fidgety or restless that you have been moving around a lot more than usual: not at all 9. Thoughts that you would be better off or of hurting yourself in some way: not at all Total score: 0 Depression Screening Interpretation: Negative Depression Screening Done: Yes Source: Developed by Drs. Elvin Perdomo, Maribel Beverly, Roberth Galvin and colleagues, with an educational parisa from [employer]. Thrive Questionnaire Date Thrive assessed: 07/17/24 I am a: Patient What is your living situation today?: I have a steady place to live Within the past 12 months, did the food you bought not last and you didn't have the money to get more?: I choose not to answer this question Within the past 12 months, did you worry whether your food would run out before you got money to buy more?: I choose not to answer this question Do you have trouble paying for medicines?: No Do you have trouble getting transportation to medical appointments?: No Do you have trouble paying your heating and electricity bill?: No Do you have trouble taking care of your child, family member or friend?: No Do you have trouble with day-to-day activities such as bathing, preparing meals, shopping, managing finances, etc.?: No Are you currently unemployed and looking for a job?: No Are you interested in more education?: No Please select the resources that you would like help with: None Currently or been in a relationship where the following occur: I choose not to answer THRIVE Score: 0 AUDIT C Alcohol Use Questionnaire (AUDIT-C) 1. How often do you have a drink containing alcohol?: Never 2. How many drinks containing alcohol do you have on a typical day when you are drinking?: 1 or 2 3. How often do you have six or more drinks on one occasion?: Never Total Score: 0 RONAL-7 AMB Questionnaire RONAL-7 Date RONAL - 7 assessed: 11/06/24 Feeling nervous, anxious, or on edge: 0 = Not at all Not being able to stop or control worryin = Not at all Worrying too much about different things: 0 = Not at all Trouble relaxin = Not at all Being so restless that it is hard to sit still: 0 = Not at all Becoming easily annoyed or irritable: 0 = Not at all Feeling afraid as if something awful might happen: 0 = Not at all Total RONAL-7 score (0-4 normal; 5-9 mild; 10-14 moderate; 15-21 severe): 0 Source: Developed by Drs. Elvin Perdomo, Maribel Beverly, Roberth Galvin and colleagues, with an educational parisa from [employer] RONAL-7 Assessment Billing RONAL-7 Assessment Tool: RONAL-7 Assessment 69469 Review of Systems Const Denies headache(s) Eyes Denies loss of vision ENT Denies vertigo, Denies dizziness, Denies headache(s) and Denies sore throat Card Denies chest pain, Denies leg edema and Denies lightheadedness Resp Denies cough, Denies hemoptysis and Denies wheezing GI Denies abdominal pain, Denies melena, Denies constipation, Denies diarrhea and Denies vomiting Denies dysuria, Denies urinary frequency and Denies urinary urgency Musc Denies arthralgias, Denies joint swelling, Denies numbness and Denies tingling Neuro Denies Abnormal speech present, Denies behavioral changes, Denies vertigo, Denies dizziness, Denies headache(s), Denies loss of vision, Denies memory loss, Denies numbness and Denies tingling Psych Denies anxiety, Denies behavioral changes, Denies depression, Denies memory loss and Denies panic attacks Baljinder/Lymph Denies easy bleeding and Denies easy bruising Aller/Immun Denies wheezing Physical exam (Primary Care) Vital Signs: Last Vital Signs Temp 97.3 F 01/12/25 15:54 Pulse 100 01/12/25 15:54 BP 110/80 01/12/25 15:54 Pulse Ox 96 01/12/25 15:54 Oxygen Delivery Method Room Air 01/12/25 15:54 BMI result Body Mass Index 33.6 BMI Assessment/Plan discussion: High BMI High, discussed plan: lifestyle, weight reduction, dietary and physical activity Tobacco/Smoking Status: Tobacco use Status Tobacco use date assessed 11/06/24 01/12/25 15:59 Patient Tobacco Use Status Never used Tobacco 01/12/25 15:59 Tobacco use type Cigarette 01/12/25 15:59 e-Cigarette/Vaping Use Never Used 01/12/25 15:59 PHQ-9: PHQ-9 Score PHQ-9: Total score 0 01/12/25 16:04 Depression Screening Interpretation: Negative Thrive Assessment: Date of Thrive Assessment Date Thrive assessed 07/17/24 01/12/25 15:59 Currently or been in a relationship where the following occur: I choose not to answer Const General: healthy appearing, no acute distress, alert and awake Nutritional Appearance: well nourished Orientation/consciousness: oriented to person, oriented to place and oriented to time HENMT Ears: TM's normal bilaterally General nose exam: Normal nasal mucous membranes and turbinates present Eyes Conjunctivae: conjunctivae normal Sclerae: sclerae normal Pupils: Equal, round and reactive pupils present Neck Neck: Yes no lymphadenopathy and Yes no JVD Thyroid: Thyroid normal Carotids: no bruits Resp Effort & Inspection: normal respiratory effort and not tachypneic Auscultation: no crackles, no rales, no rhonchi and no wheezes Cardio Rate: regular rate Rhythm: regular rhythm Heart sounds: no murmurs and normal S1 and S2 GI Palpation (GI): Soft to palpation, nontender, no hepatomegaly and no splenomegaly Auscultation: normal bowel sounds Skin General skin exam: no rashes or lesions noted and dry skin Neuro General: oriented to person, oriented to place and oriented to time Cranial nerves: Yes Equal, round and reactive pupils present Speech: No Abnormal speech present Gait exam (Neuro): Normal gait present Motor exam (neuro): no tremor noted Extrem Right upper extremity: full ROM Left upper extremity: full ROM Right lower extremity: full ROM; no edema Left lower extremity: full ROM; no edema Psych Mental Status: mental status grossly normal Speech and movement: Normal speech and movement present Affect: normal affect Attitude: cooperative Thought process: Normal thought process present Coding Level of Care Code Est Pt Level 4 (44702) Diagnoses Primary hypertension I10 Hypertension type: primary hypertension Mixed hyperlipidemia E78.2 Hyperlipidemia type: mixed hyperlipidemia Class 1 obesity E66.811 Mild acid reflux K21.9 Additional Codes RONAL-7 Assessment Billing - RONAL-7 Assessment Tool: RONAL-7 Assessment 09021 ([id number]) Assessment & Plan Assessment & Plan (1) HTN (hypertension): Code(s): I10 - Essential (primary) hypertension Category: Medical Qualifiers: Hypertension type: primary hypertension Qualified Code(s): I10 - Essential (primary) hypertension Plan: Patient's blood pressure acceptable today in office. Will continue his current dose of lisinopril 5 mg with goal blood pressure to remain below 130/80. (2) Hyperlipidemia: Code(s): E78.5 - Hyperlipidemia, unspecified Category: Medical Qualifiers: Hyperlipidemia type: mixed hyperlipidemia Qualified Code(s): E78.2 - Mixed hyperlipidemia Plan: Patient continues on statin therapy, most recent lipid panel showing good control of his total cholesterol and LDL. Goal LDL is to remain below 130 (3) Class 1 obesity: Code(s): E66.811 - Obesity, class 1 Category: Medical Plan: Patient has been working in his lifestyle and eating habits. He does understand his BMI remains above 30 will continue working on lifestyle and dietary modifications (4) Mild acid reflux: Comment: 11/20/24 Upper endoscopy -Normal esophagus (biopsy, dilation), Hiatal hernia, Gastritis , Normal duodenum ,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 Repeat 3 years (2027). Code(s): K21.9 - Gastro-esophageal reflux disease without esophagitis Category: Medical Plan: Again followed by [facility]. Was found to have H pylori and was treated with antibiotics. He feels much better since he has made dietary changes. He does use omeprazole as needed. Orders: Orders Comprehensive [place]. Panel Fast 01/12/25 I10 - Essential (primary) hypertension Complete Blood Count no Diff 01/12/25 I10 - Essential (primary) hypertension Prostate Specific Antigen Scr 01/12/25 E78.2 - Mixed hyperlipidemia, Z12.5 - Encounter for screening for malignant neoplasm of prostate Hemoglobin A1c 01/12/25 R73.01 - Impaired fasting glucose Lipid Panel 01/12/25 E78.2 - Mixed hyperlipidemia
== END 2025-01-12 16:20 | disposition home or self-care (01) ==
LOC: HO.HMCH 15:16
PROVIDERS: PCP Physician Assistant; Visit Provider Physician Assistant
DX: I10 Essential (primary) hypertension (principal); E78.2 Mixed hyperlipidemia; E66.811 Obesity, class 1; K21.9 Gastro-esophageal reflux disease without esophagitis; Z68.33 Body mass index [BMI] 33.0-33.9, adult

== ENCOUNTER → 2025-01-12 15:15 | Outpatient (BNVA) | payer OTHER, SELFPAY | PROVIDERS: PCP Physician Assistant; Visit Provider Physician Assistant | DX: I10 Essential (primary) hypertension (principal); E66.01 Morbid (severe) obesity due to excess calories; K21.9 Gastro-esophageal reflux disease without esophagitis; E78.2 Mixed hyperlipidemia; R73.01 Impaired fasting glucose; Z68.33 Body mass index [BMI] 33.0-33.9, adult | CPT/HCPCS: 96127 ==